=== PATIENT | male | born 1975 | race Caucasian/White ===

== ENCOUNTER 2021-03-30 08:09 | Outpatient (REF) | payer OTHER, SELFPAY ==
[2021-03-30 11:25] LABS: MANUAL DIFF FLAG NO
[2021-03-30 11:36] LABS: Basophils Absolute Auto 0.1 X10*3/uL (0.0-0.2); Basophils Percent Auto 0.6 % (0-2); Eosinophils Absolute Auto 0.1 X10*3/uL (0.0-0.4); Eosinophils Percent Auto 1.2 % (0-4); Hematocrit 50.8 % (42-52); Hemoglobin 17.3 g/dl (14.0-18.0); Imm Gran Abs Auto 0.03 X10*3/uL (0.00-0.03); Imm Gran Pct Auto 0.4 % (0.0-0.4); Lymphocytes Absolute Auto 2.2 X10*3/uL (1.2-4.9); Lymphocytes Percent Auto 27.7 % (20-40); Mean Corpuscular HGB Conc 34.1 g/dl (31.0-36.0); Mean Corpuscular Hemoglobin 31.3 pg (27.0-33.0); Mean Corpuscular Volume 91.9 fL (80-98); Mean Platelet Volume 11.3 fL (9.4-12.4); Monocytes Absolute Auto 0.8 X10*3/uL (0.1-1.2); Monocytes Percent Auto 10.7 % (2-11); Neutrophils Absolute Auto 4.6 X10*3/uL (2.0-8.3); Neutrophils Percent Auto 59.4 % (45-73); Platelet Count 217 X10*3/uL (160-400); Red Blood Count 5.53 X10*6/uL (4.60-5.80); Red Cell Distribution Width 13.4 % (11.0-16.0); White Blood Count 7.8 X10*3/uL (4.8-10.8)
[2021-03-30 12:06] LABS: Alanine Aminotransferase 67 U/L (0-40); Albumin Level 4.6 g/dL (3.5-5.0); Alkaline Phosphatase 78 U/L (39-117); Anion Gap 14 (12-20); Aspartate Amino Transferase 30 U/L (5-37); Bilirubin Total 1.4 mg/dL (0.0-1.0); Blood Urea Nitrogen 9 mg/dL (9-16); Calcium 9.7 mg/dL (8.4-10.2); Carbon Dioxide 26 mmol/L (22-29); Chloride 99 mmol/L (96-108); Cholesterol 227 mg/dL; Estimated Glomerular Filt Rate > 60; Glucose Fasting 227 mg/dL (60-99); HDL Cholesterol 47 mg/dL; LDL Cholesterol Calculated 131 mg/dl; Sodium 135 mmol/L (135-145); Total Protein 7.6 g/dL (6.5-8.0); Triglycerides 245 mg/dL
[2021-03-30 12:28] LABS: TSH reflex Free T4 4.18 uIU/mL (0.32-4.0)
[2021-03-30 13:05] LABS: Free T4 (Free Thyroxine) 0.86 ng/dL (0.71-1.85)
== END 2021-03-30 08:10 | disposition home or self-care (01) ==
LOC: HO.HMGCLDS 08:09
PROVIDERS: PCP Internal Medicine; Visit Provider Internal Medicine
DX: I10 Essential (primary) hypertension (principal); E66.01 Morbid (severe) obesity due to excess calories; Z76.89 Persons encountering health services in other specified circumstances
CPT/HCPCS: 36415; 80053; 80061; 84439; 84443; 85025

== ENCOUNTER 2021-09-05 09:15 | Outpatient (REF) | payer OTHER, SELFPAY ==
[2021-09-05 12:00] LABS: Estimated Average Glucose 226 mg/dL; Hemoglobin A1c % 9.5 %
[2021-09-05 12:12] LABS: Creatinine Urine 338.31 mg/dL; Microalbum/Creatinine Ratio Ur 11.8 ug/mg cr
[2021-09-05 12:19] LABS: TSH reflex Free T4 2.99 uIU/mL (0.32-4.0)
[2021-09-05 12:23] LABS: Alanine Aminotransferase 40 U/L (0-40); Albumin Level 4.4 g/dL (3.5-5.0); Alkaline Phosphatase 64 U/L (39-117); Anion Gap 13 (12-20); Aspartate Amino Transferase 22 U/L (5-37); Bilirubin Total 1.5 mg/dL (0.0-1.0); Blood Urea Nitrogen 15 mg/dL (9-16); Calcium 9.7 mg/dL (8.4-10.2); Carbon Dioxide 28 mmol/L (22-29); Chloride 97 mmol/L (96-108); Estimated Glomerular Filt Rate > 60; Glucose Random 290 mg/dL (60-115); Potassium 3.7 mmol/L (3.3-5.1); Sodium 134 mmol/L (135-145); Total Protein 7.4 g/dL (6.5-8.0)
== END 2021-09-05 09:16 | disposition home or self-care (01) ==
LOC: HO.HMGCLDS 09:15
PROVIDERS: PCP Internal Medicine; Visit Provider Internal Medicine
DX: E03.8 Other specified hypothyroidism (principal); E11.9 Type 2 diabetes mellitus without complications; E66.01 Morbid (severe) obesity due to excess calories; I10 Essential (primary) hypertension; R79.89 Other specified abnormal findings of blood chemistry; E03.9 Hypothyroidism, unspecified
CPT/HCPCS: 36415; 80053; 82043; 83036; 84443

== ENCOUNTER 2021-12-24 09:35 | Outpatient (REF) | payer OTHER, SELFPAY ==
[2021-12-24 11:34] LABS: Estimated Average Glucose 114 mg/dL; Hemoglobin A1c % 5.6 %
[2021-12-24 11:54] LABS: Alanine Aminotransferase 25 U/L (0-40); Albumin Level 4.7 g/dL (3.5-5.0); Alkaline Phosphatase 60 U/L (39-117); Anion Gap 11 (12-20); Aspartate Amino Transferase 18 U/L (5-37); Bilirubin Total 0.6 mg/dL (0.0-1.0); Blood Urea Nitrogen 21 mg/dL (9-16); Calcium 9.6 mg/dL (8.4-10.2); Carbon Dioxide 28 mmol/L (22-29); Chloride 103 mmol/L (96-108); Estimated Glomerular Filt Rate > 60; Glucose Random 96 mg/dL (60-115); Potassium 4.4 mmol/L (3.3-5.1); Sodium 138 mmol/L (135-145); Total Protein 7.6 g/dL (6.5-8.0)
== END 2021-12-24 09:36 | disposition home or self-care (01) ==
LOC: HO.HMGCLDS 09:35
PROVIDERS: Visit Provider Internal Medicine
DX: E11.65 Type 2 diabetes mellitus with hyperglycemia (principal); E66.01 Morbid (severe) obesity due to excess calories; I10 Essential (primary) hypertension; E03.8 Other specified hypothyroidism
CPT/HCPCS: 36415; 80053; 83036

== ENCOUNTER 2022-04-30 08:32 | Outpatient (REF) | payer OTHER, SELFPAY ==
[2022-04-30 11:54] LABS: Estimated Average Glucose 117 mg/dL; Hemoglobin A1c % 5.7 %
[2022-04-30 12:08] LABS: Microalbum/Creatinine Ratio Ur 12.5 ug/mg cr
[2022-04-30 12:14] LABS: Alanine Aminotransferase 31 U/L (0-40); Albumin Level 4.3 g/dL (3.5-5.0); Alkaline Phosphatase 69 U/L (39-117); Anion Gap 14 (12-20); Aspartate Amino Transferase 32 U/L (5-37); Bilirubin Total 0.9 mg/dL (0.0-1.0); Blood Urea Nitrogen 22 mg/dL (9-16); Calcium 9.4 mg/dL (8.4-10.2); Carbon Dioxide 27 mmol/L (22-29); Chloride 105 mmol/L (96-108); Cholesterol 204 mg/dL; Estimated Glomerular Filt Rate > 60; Glucose Fasting 128 mg/dL (60-99); HDL Cholesterol 45 mg/dL; LDL Cholesterol Calculated 120 mg/dl; Potassium 4.7 mmol/L (3.3-5.1); Sodium 141 mmol/L (135-145); TSH reflex Free T4 3.57 uIU/mL (0.32-4.0); Total Protein 7.1 g/dL (6.5-8.0); Triglycerides 198 mg/dL
== END 2022-04-30 08:33 | disposition home or self-care (01) ==
LOC: HO.HMGCLDS 08:32
PROVIDERS: PCP Internal Medicine; Visit Provider Internal Medicine
DX: E66.01 Morbid (severe) obesity due to excess calories (principal); E11.9 Type 2 diabetes mellitus without complications; E03.8 Other specified hypothyroidism; I10 Essential (primary) hypertension; Z91.09 Other allergy status, other than to drugs and biological substances
CPT/HCPCS: 36415; 80053; 80061; 82043; 83036; 84443

== ENCOUNTER 2022-09-12 11:06 | Outpatient (REF) | payer OTHER, SELFPAY ==
[2022-09-12 13:55] LABS: MANUAL DIFF FLAG NO
[2022-09-12 14:09] LABS: Basophils Absolute Auto 0.1 X10*3/uL (0.0-0.2); Basophils Percent Auto 0.6 % (0-2); Eosinophils Absolute Auto 0.2 X10*3/uL (0.0-0.4); Hematocrit 47.9 % (42.0-52.0); Hemoglobin 15.9 g/dl (14.0-18.0); Imm Gran Abs Auto 0.05 X10*3/uL (0.00-0.03); Imm Gran Pct Auto 0.6 % (0.0-0.4); Lymphocytes Absolute Auto 2.6 X10*3/uL (1.2-4.9); Lymphocytes Percent Auto 31.4 % (20-40); Mean Corpuscular HGB Conc 33.2 g/dl (31.0-36.0); Mean Corpuscular Hemoglobin 30.2 pg (27.0-33.0); Mean Corpuscular Volume 90.9 fL (80.0-98.0); Mean Platelet Volume 11.9 fL (9.4-12.4); Monocytes Absolute Auto 0.7 X10*3/uL (0.1-1.2); Monocytes Percent Auto 8.5 % (2-11); Neutrophils Absolute Auto 4.6 x10*3/uL (2.0-8.3); Neutrophils Percent Auto 56.9 % (45-73); Platelet Count 184 X10*3/uL (160-400); Red Blood Count 5.27 X10*6/uL (4.60-5.80); Red Cell Distribution Width 12.5 % (11.0-16.0); White Blood Count 8.2 X10*3/uL (4.8-10.8)
[2022-09-12 14:13] LABS: Estimated Average Glucose 160 mg/dL; Hemoglobin A1c % 7.2 %
[2022-09-12 14:44] LABS: Alanine Aminotransferase 35 U/L (0-40); Albumin Level 4.4 g/dL (3.5-5.0); Alkaline Phosphatase 62 U/L (39-117); Anion Gap 15 (12-20); Aspartate Amino Transferase 22 U/L (5-37); Bilirubin Total 1.1 mg/dL (0.0-1.0); Blood Urea Nitrogen 17 mg/dL (9-16); Calcium 9.7 mg/dL (8.4-10.2); Carbon Dioxide 27 mmol/L (22-29); Chloride 102 mmol/L (96-108); Estimated Glomerular Filt Rate > 60; Glucose Fasting 170 mg/dL (60-99); Potassium 4.5 mmol/L (3.3-5.1); Sodium 139 mmol/L (135-145)
[2022-09-12 14:45] LABS: TSH reflex Free T4 2.64 uIU/mL (0.32-4.0)
== END 2022-09-12 11:07 | disposition home or self-care (01) ==
LOC: HO.HMGCLDS 11:06
PROVIDERS: PCP Internal Medicine; Visit Provider Internal Medicine
DX: E03.8 Other specified hypothyroidism (principal); E66.01 Morbid (severe) obesity due to excess calories; I10 Essential (primary) hypertension; K58.0 Irritable bowel syndrome with diarrhea; Z91.09 Other allergy status, other than to drugs and biological substances; E11.9 Type 2 diabetes mellitus without complications
CPT/HCPCS: 36415; 80053; 83036; 84443; 85025

== ENCOUNTER 2022-12-19 08:01 | Outpatient (REF) | payer OTHER, SELFPAY | END 2022-12-19 08:02 | disposition home or self-care (01) | LOC: HO.HMGCLDS 08:01 | PROVIDERS: PCP Internal Medicine; Visit Provider Internal Medicine | DX: E11.9 Type 2 diabetes mellitus without complications (principal); I10 Essential (primary) hypertension | CPT/HCPCS: 36415; 80053; 83036 ==

== ENCOUNTER 2022-12-25 08:29 | Outpatient (AMB) | payer OTHER, SELFPAY ==
--- NOTE | 2022-12-25 08:30 | MHC.PC.OV ---
Vital Signs 12/25/22 08:34 Height 6 ft 1 in Weight 329 lb BMI 43.4 BP 124/78 Blood Pressure Location Lt brachial Position Sitting Pulse 57 Pulse Source Pulse Oximeter Pulse Oximetry (%) 97 Oxygen Delivery Method Room Air Intake Visit Reasons: PE per [place] Allergies Environmental Allergy (Intermediate, Uncoded 05/03/22 08:14) Watery eyes, runny nose Medication List - Last Reconciled 12/25/22 by Glenna More MD amlodipine 10 mg PO DAILY 90 days atenolol-chlorthalidone 50-25 mg 1 tab PO DAILY 90 days glipizide-metformin 5-500 mg 1 tab PO BID 90 days levothyroxine 25 mcg PO DAILY 90 days lisinopril 10 mg PO DAILY 90 days montelukast (Singulair) 10 mg PO DAILY omeprazole 20 mg PO DAILY Tobacco use date assessed: 12/25/22 Dental Screening Dental Screen Date: 12/25/22 Did you have a dental visit in the last 12 months?: No Did you have a dental problem in the last 6 months where you did not have access to dental care?: No Was dental information given to patient?: No HPI PE per [place] HPI Details Physical exam appointment Labs done this month reviewed Hemoglobin A1c is 6.1% Blood pressure controlled Medication list reviewed Follow-up 3 months Patient does not want to have colonoscopy as yet He has history of nasal surgery and after that 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 How often do you have a drink containing alcohol?: Never 3. How often do you have six or more drinks on one occasion?: Never Total Score: 0 Score Reviewed/Action Taken: Yes SOPHIA-7 AMB Questionnaire SOPHIA-7 Date SOPHIA - 7 assessed: 09/11/21 Source: Developed by Drs. Herbert Torrez, Kylah Clarke, Ayush Fallon and colleagues, with an educational jesús from [employer]. Review of Systems Const Denies chills, Denies fever(s) and Denies headache(s) Eyes Denies blurry vision ENT Denies headache(s), Denies nasal discharge, Denies nasal obstruction, Denies odynophagia and Denies sinus pain Card Denies chest pain at rest and Denies chest pain with activity Resp Denies cough and Denies hemoptysis GI Denies diarrhea, Denies odynophagia, Denies vomiting and Denies hematemesis Reports as per HPI Musc Denies abnormal gait Skin/Breast Reports as per HPI Neuro Denies Neuro-related abnormal movements, Denies Abnormal speech present, Denies abnormal gait, Denies headache(s) and Denies Sensory deficit (Neuro) Psych Denies mood swings and Denies paranoia Endo Reports as per HPI Aaron/Lymph Reports as per HPI Aller/Immun Reports as per HPI Physical exam (Primary Care) Vital Signs: Last Vital Signs Pulse 57 12/25/22 08:34 BP 124/78 12/25/22 08:34 Pulse Ox 97 12/25/22 08:34 Oxygen Delivery Method Room Air 12/25/22 08:34 BMI result Body Mass Index 43.4 Tobacco/Smoking Status: Tobacco use Status Tobacco use date assessed 12/25/22 12/25/22 08:37 Patient Tobacco Use Status Never used Tobacco 12/25/22 08:33 e-Cigarette/Vaping Use Never Used 12/25/22 08:33 Thrive Assessment: Date of Thrive Assessment Date Thrive assessed 09/11/21 12/25/22 08:33 Const General: cooperative, comfortable and no acute distress Orientation/consciousness: patient oriented x3 HENMT Head: Yes normocephalic and Yes atraumatic Eyes General: appearance normal, both eyes and all related structures Pupils: Equal, round and reactive pupils present EOM: EOMs intact bilaterally Neck Neck: Yes supple and No lymphadenopathy Thyroid: Thyroid normal Lymphatic: no lymphadenopathy noted Resp Effort & Inspection: normal respiratory effort and able to speak in complete sentences Auscultation: clear to auscultation bilaterally Cardio Heart sounds: S1 normal heart sound present and S2 normal heart sound present GI Palpation (GI): Soft to palpation and nontender Auscultation: normal bowel sounds General: Yes no CVA tenderness Back/Spine/Pelvis Back: no CVA tenderness Skin General skin exam: elasticity normal and turgor normal Neuro General: patient oriented x3 and gait normal Cranial nerves: Yes Equal, round and reactive pupils present Speech: No Abnormal speech present Sensory Exam: No Sensory deficit (Neuro) Extrem General: Yes normal exam except as noted and No edema Assessment and Plan Assessment & Plan (1) Encounter for general adult medical examination with abnormal findings: Code(s): Z00.01 - Encounter for general adult medical examination with abnormal findings (2) Diabetes type 2, controlled: Code(s): E11.9 - Type 2 diabetes mellitus without complications (3) Other specified hypothyroidism: Code(s): E03.8 - Other specified hypothyroidism (4) Hypertension, essential: Code(s): I10 - Essential (primary) hypertension (5) Acid reflux: Code(s): K21.9 - Gastro-esophageal reflux disease without esophagitis (6) LFT elevation: Code(s): R79.89 - Other specified abnormal findings of blood chemistry (7) Morbid obesity due to excess calories: Code(s): E66.01 - Morbid (severe) obesity due to excess calories (8) Traumatic anosmia: Code(s): R43.0 - Anosmia (9) Dizziness on standing: Code(s): R42 - Dizziness and giddiness Plan Physical exam appointment Labs done this month reviewed Hemoglobin A1c is 6.1% Blood pressure controlled Medication list reviewed Follow-up 3 months Patient does not want to have colonoscopy as yet He has history of nasal surgery and after that 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 After that surgery patient feel dizzy when his eyes closed and he is standing Follow-up 3 months Coding Level of Care Code Est Pt Prev Care 40-64y(94210) Diagnoses Encounter for general adult medical examination with abnormal findings Z00.01 Diabetes type 2, controlled E11.9 Other specified hypothyroidism E03.8 Hypertension, essential I10 Acid reflux K21.9 LFT elevation R79.89 Morbid obesity due to excess calories E66.01 Traumatic anosmia R43.0 Dizziness on standing R42
[2022-12-25 08:34] VITALS: BP 124/78; PULSE 57; O2SAT 97; BMI 43.4
== END 2022-12-25 10:00 | disposition home or self-care (01) ==
PROVIDERS: Visit Provider Internal Medicine
DX: Z00.01 Encounter for general adult medical examination with abnormal findings (principal); E66.01 Morbid (severe) obesity due to excess calories; E11.9 Type 2 diabetes mellitus without complications; Z68.43 Body mass index [BMI] 50.0-59.9, adult; E03.8 Other specified hypothyroidism; I10 Essential (primary) hypertension; K21.9 Gastro-esophageal reflux disease without esophagitis; R79.89 Other specified abnormal findings of blood chemistry; R43.0 Anosmia; R42 Dizziness and giddiness
CPT/HCPCS: 99396

== ENCOUNTER 2023-03-26 10:15 | Outpatient (REF) | payer OTHER, SELFPAY ==
[2023-03-26 13:09] LABS: MANUAL DIFF FLAG NO
[2023-03-26 13:28] LABS: Basophils Absolute Auto 0.1 X10*3/uL (0.0-0.2); Basophils Percent Auto 0.7 % (0-2); Eosinophils Absolute Auto 0.1 X10*3/uL (0.0-0.4); Eosinophils Percent Auto 1.7 % (0-4); Hematocrit 47.4 % (42.0-52.0); Hemoglobin 15.8 g/dl (14.0-18.0); Imm Gran Abs Auto 0.05 X10*3/uL (0.00-0.03); Imm Gran Pct Auto 0.6 % (0.0-0.4); Lymphocytes Absolute Auto 2.4 X10*3/uL (1.2-4.9); Lymphocytes Percent Auto 29.8 % (20-40); Mean Corpuscular HGB Conc 33.3 g/dl (31.0-36.0); Mean Corpuscular Hemoglobin 30.3 pg (27.0-33.0); Mean Corpuscular Volume 90.8 fL (80.0-98.0); Mean Platelet Volume 11.7 fL (9.4-12.4); Monocytes Absolute Auto 0.8 X10*3/uL (0.1-1.2); Monocytes Percent Auto 9.6 % (2-11); Neutrophils Absolute Auto 4.7 x10*3/uL (2.0-8.3); Neutrophils Percent Auto 57.6 % (45-73); Platelet Count 190 X10*3/uL (160-400); Red Blood Count 5.22 X10*6/uL (4.60-5.80); Red Cell Distribution Width 12.6 % (11.0-16.0); White Blood Count 8.2 X10*3/uL (4.8-10.8)
[2023-03-26 13:47] LABS: Alanine Aminotransferase 27 U/L (0-40); Albumin Level 4.5 g/dL (3.5-5.0); Alkaline Phosphatase 69 U/L (39-117); Anion Gap 16 (12-20); Aspartate Amino Transferase 17 U/L (5-37); Bilirubin Total 0.8 mg/dL (0.0-1.0); Blood Urea Nitrogen 14 mg/dL (9-16); Calcium 10.2 mg/dL (8.4-10.2); Carbon Dioxide 29 mmol/L (22-29); Chloride 100 mmol/L (96-108); Cholesterol 234 mg/dL (<200); Estimated Glomerular Filt Rate > 60; Glucose Random 138 mg/dL (60-115); HDL Cholesterol 51 mg/dL (>40); LDL Cholesterol Calculated 143 mg/dL (<100); Potassium 5.1 mmol/L (3.3-5.1); Sodium 140 mmol/L (135-145); Total Protein 7.6 g/dL (6.5-8.0); Triglycerides 203 mg/dL (<150)
== END 2023-03-26 10:16 | disposition home or self-care (01) ==
LOC: HO.HMGCLDS 10:15
PROVIDERS: PCP Internal Medicine; Visit Provider Internal Medicine
DX: I10 Essential (primary) hypertension (principal); E11.9 Type 2 diabetes mellitus without complications; E66.01 Morbid (severe) obesity due to excess calories
CPT/HCPCS: 36415; 80053; 80061; 82043; 82570; 83036; 84443; 85025

== ENCOUNTER 2023-04-01 10:24 | Outpatient (AMB) | payer OTHER, SELFPAY ==
[2023-04-01 10:29] VITALS: BP 126/78; PULSE 60; O2SAT 95; BMI 44.4
--- NOTE | 2023-04-01 10:29 | MHC.PC.OV ---
Vital Signs 04/01/23 10:29 Height 6 ft 1 in Weight 336 lb 6 oz BMI 44.4 BP 126/78 Blood Pressure Location Rt brachial Position Sitting Pulse 60 Pulse Source Pulse Oximeter Pulse Oximetry (%) 95 Oxygen Delivery Method Room Air Intake Visit Reasons: NOELLE, ENDY Allergies Environmental Allergy (Intermediate, Uncoded 05/03/22 08:14) Watery eyes, runny nose Medication List - Last Reconciled 04/01/23 by Glenna More MD amlodipine 10 mg PO DAILY 90 days atenolol-chlorthalidone 50-25 mg 1 tab PO DAILY 90 days glipizide-metformin 5-500 mg 1 tab PO BID 90 days levothyroxine 25 mcg PO DAILY 90 days lisinopril 10 mg PO DAILY 90 days montelukast (Singulair) 10 mg PO DAILY omeprazole 20 mg PO DAILY Tobacco use date assessed: 04/01/23 Dental Screening Dental Screen Date: 04/01/23 Did you have a dental visit in the last 12 months?: Yes Did you have a dental problem in the last 6 months where you did not have access to dental care?: No Was dental information given to patient?: Patient has dentist HPI EP, ENDY HPI Details Patient is 47-year-old male came in today for his regular appointment Labs done recently reviewed with the patient His lipids has gotten worse his LDL was in 120s range in summer and now it is above 140 Once again diet was discussed with the patient, he would like to repeat lipids again in 2 months, order placed GERD is stable with omeprazole 20 mg Diabetes mellitus: Patient is on glipizide metformin 5-500 mg his hemoglobin A1c is stable and is well controlled His blood pressure is controlled as well, he is on atenolol chlorthalidone 50-25 mg and is tolerating medications. He has IBS as well which is diarrhea predominant taking Imodium as needed Allergies are stable with long-acting antihistamine and montelukast BMI is elevated at patient is aware , tells me that he should be trying to lose weight but he is not however he knows what to eat and what not to eat Hypothyroidism: Continue levothyroxine 25 mcg TSH is within normal limit Follow-up in September, patient is not available to come in early he will be traveling Full set of labs are needed in September fasting [facility] Social History Housing: Apartment Patient Tobacco Use Status: Never used Tobacco e-Cigarette/Vaping Use: Never Used service: No Current occupational status: employed 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 1. Little interest or pleasure in doing things: not at all 2. Feeling down, depressed, or hopeless: not at all 3. Trouble falling or staying asleep, or sleeping too much: not at all 4. Feeling tired or having little energy: not at all 5. Poor appetite or overeating: not at all 6. Feeling bad about yourself - or that you are a failure or have let yourself or your family down: not at all 7. Trouble concentrating on things, such as reading the newspaper or watching television: not at all 8. Moving or speaking so slowly that other people could have noticed. Or the opposite - being so fidgety or restless that you have been moving around a lot more than usual: not at all 9. Thoughts that you would be better off or of hurting yourself in some way: not at all Total score: 0 Depression Screening Interpretation: Negative Depression Screening Done: Yes 37937 - PHQ-9 Billing: Yes Source: Developed by Drs. Herbert Torrez, Kylah Clarke, Ayush Fallon and colleagues, with an educational jesús from [employer]. Thrive Questionnaire Date Thrive assessed: 04/01/23 I am a: Patient What is your living situation today?: I have a steady place to live Within the past 12 months, did the food you bought not last and you didn't have the money to get more?: Never true Within the past 12 months, did you worry whether your food would run out before you got money to buy more?: Never true Do you have trouble paying for medicines?: No Do you have trouble getting transportation to medical appointments?: No Do you have trouble paying your heating and electricity bill?: No Do you have trouble taking care of your child, family member or friend?: No Do you have trouble with day-to-day activities such as bathing, preparing meals, shopping, managing finances, etc.?: No Are you currently unemployed and looking for a job?: No Are you interested in more education?: No AUDIT C Alcohol Use Questionnaire (AUDIT-C) 1. How often do you have a drink containing alcohol?: 2-4 times a month 2. How many drinks containing alcohol do you have on a typical day when you are drinking?: 1 or 2 3. How often do you have six or more drinks on one occasion?: Never Total Score: 2 Score Reviewed/Action Taken: Yes SOPHIA-7 AMB Questionnaire SOPHIA-7 Date SOPHIA - 7 assessed: 04/01/23 Feeling nervous, anxious, or on edge: 0 = Not at all Not being able to stop or control worryin = Not at all Worrying too much about different things: 0 = Not at all Trouble relaxin = Not at all Being so restless that it is hard to sit still: 0 = Not at all Becoming easily annoyed or irritable: 0 = Not at all Feeling afraid as if something awful might happen: 0 = Not at all Total SOPHIA-7 score (0-4 normal; 5-9 mild; 10-14 moderate; 15-21 severe): 0 Source: Developed by Drs. Herbert Torrez, Kylah Clarke, Ayush Fallon and colleagues, with an educational jesús from [employer]. SOPHIA-7 Assessment Billing SOPHIA-7 Assessment Tool: SOPHIA-7 Assessment 19144 Review of Systems Const Denies chills and Denies fever(s) ENT Denies epistaxis and Denies nasal discharge Card Denies chest pain Resp Denies chest congestion, Denies cough and Denies hemoptysis GI Denies diarrhea and Denies nausea Skin/Breast Denies rash Neuro Reports no additional complaints Psych Reports no additional complaints Endo Reports no additional complaints Physical exam (Primary Care) Vital Signs: Last Vital Signs Pulse 60 04/01/23 10:29 BP 126/78 04/01/23 10:29 Pulse Ox 95 04/01/23 10:29 Oxygen Delivery Method Room Air 04/01/23 10:29 BMI result Body Mass Index 44.4 Tobacco/Smoking Status: Tobacco use Status Tobacco use date assessed 04/01/23 04/01/23 10:31 Patient Tobacco Use Status Never used Tobacco 04/01/23 10:31 e-Cigarette/Vaping Use Never Used 04/01/23 10:31 PHQ-9: PHQ-9 Score PHQ-9: Total score 0 04/01/23 11:03 Depression Screening Interpretation: Negative Thrive Assessment: Date of Thrive Assessment Date Thrive assessed 04/01/23 04/01/23 11:03 Const General: cooperative, comfortable and no acute distress Orientation/consciousness: patient oriented x3 HENMT Head: Yes normocephalic Eyes General: appearance normal, both eyes and all related structures Neck Neck: Yes supple Resp Effort & Inspection: normal respiratory effort, no cough and no stridor Cardio Rhythm: regular rhythm Heart sounds: S1 normal heart sound present and S2 normal heart sound present Skin General skin exam: turgor normal Neuro General: patient oriented x3, tone normal and moves all extremities Extrem Right lower extremity: no edema Left lower extremity: no edema Assessment and Plan Assessment & Plan (1) Diabetes type 2, controlled: Code(s): E11.9 - Type 2 diabetes mellitus without complications Qualifiers: 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 use: without longwall shearer operator use Diabetes mellitus complication status: without complication Qualified Code(s): E11.9 - Type 2 diabetes mellitus without complications (2) Lipid disorder: Code(s): E78.9 - Disorder of lipoprotein metabolism, unspecified (3) Other specified hypothyroidism: Code(s): E03.8 - Other specified hypothyroidism (4) Hypertension, essential: Code(s): I10 - Essential (primary) hypertension (5) Acid reflux: Code(s): K21.9 - Gastro-esophageal reflux disease without esophagitis Qualifiers: Esophagitis presence: without esophagitis Qualified Code(s): K21.9 - Gastro-esophageal reflux disease without esophagitis (6) LFT elevation: Code(s): R79.89 - Other specified abnormal findings of blood chemistry (7) Morbid obesity due to excess calories: Code(s): E66.01 - Morbid (severe) obesity due to excess calories (8) Environmental allergies: Code(s): Z91.09 - Other allergy status, other than to drugs and biological substances Plan Patient is 47-year-old male came in today for his regular appointment Labs done recently reviewed with the patient His lipids has gotten worse his LDL was in 120s range in summer and now it is above 140 Once again diet was discussed with the patient, he would like to repeat lipids again in 2 months, order placed GERD is stable with omeprazole 20 mg Diabetes mellitus: Patient is on glipizide metformin 5-500 mg his hemoglobin A1c is stable and is well controlled His blood pressure is controlled as well, he is on atenolol chlorthalidone 50-25 mg and is tolerating medications. He has IBS as well which is diarrhea predominant taking Imodium as needed Allergies are stable with long-acting antihistamine and montelukast BMI is elevated at patient is aware , tells me that he should be trying to lose weight but he is not however he knows what to eat and what not to eat Hypothyroidism: Continue levothyroxine 25 mcg TSH is within normal limit Follow-up in September, patient is not available to come in early he will be traveling Full set of labs are needed in September fasting Orders: Orders Lipid Panel Today E78.9 - Disorder of lipoprotein metabolism, unspecified Liver Panel Today E78.9 - Disorder of lipoprotein metabolism, unspecified Comprehensive [place]. Panel Fast Today E03.8 - Other specified hypothyroidism, E11.9 - Type 2 diabetes mellitus without complications, E66.01 - Morbid (severe) obesity due to excess calories, E78.9 - Disorder of lipoprotein metabolism, unspecified, I10 - Essential (primary) hypertension, R79.89 - Other specified abnormal findings of blood chemistry Lipid Panel 4 Months E03.8 - Other specified hypothyroidism, E11.9 - Type 2 diabetes mellitus without complications, E66.01 - Morbid (severe) obesity due to excess calories, E78.9 - Disorder of lipoprotein metabolism, unspecified, I10 - Essential (primary) hypertension, R79.89 - Other specified abnormal findings of blood chemistry Hemoglobin A1c Today E03.8 - Other specified hypothyroidism, E11.9 - Type 2 diabetes mellitus without complications, E66.01 - Morbid (severe) obesity due to excess calories, E78.9 - Disorder of lipoprotein metabolism, unspecified, I10 - Essential (primary) hypertension, R79.89 - Other specified abnormal findings of blood chemistry Complete Blood Count Auto Diff Today E03.8 - Other specified hypothyroidism, E11.9 - Type 2 diabetes mellitus without complications, E66.01 - Morbid (severe) obesity due to excess calories, E78.9 - Disorder of lipoprotein metabolism, unspecified, I10 - Essential (primary) hypertension, R79.89 - Other specified abnormal findings of blood chemistry TSH reflex Free T4 4 Months E03.8 - Other specified hypothyroidism, E11.9 - Type 2 diabetes mellitus without complications, E66.01 - Morbid (severe) obesity due to excess calories, E78.9 - Disorder of lipoprotein metabolism, unspecified, I10 - Essential (primary) hypertension, R79.89 - Other specified abnormal findings of blood chemistry Microalbumin, Random (w Creat) Today E03.8 - Other specified hypothyroidism, E11.9 - Type 2 diabetes mellitus without complications, E66.01 - Morbid (severe) obesity due to excess calories, E78.9 - Disorder of lipoprotein metabolism, unspecified, I10 - Essential (primary) hypertension, R79.89 - Other specified abnormal findings of blood chemistry Coding Level of Care Code Est Pt Level 4 (65583) Diagnoses Controlled type 2 diabetes mellitus without complication, without long-term current use of insulin E11.9 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
== END 2023-04-01 11:21 | disposition home or self-care (01) ==
LOC: HO.HMGC 10:24
PROVIDERS: PCP Internal Medicine; Visit Provider Internal Medicine
DX: E11.9 Type 2 diabetes mellitus without complications (principal); E66.01 Morbid (severe) obesity due to excess calories; Z68.41 Body mass index [BMI] 40.0-44.9, adult; E78.9 Disorder of lipoprotein metabolism, unspecified; E03.8 Other specified hypothyroidism; I10 Essential (primary) hypertension; K21.9 Gastro-esophageal reflux disease without esophagitis; R79.89 Other specified abnormal findings of blood chemistry; Z91.09 Other allergy status, other than to drugs and biological substances
CPT/HCPCS: 99214

== ENCOUNTER 2023-10-14 09:37 | Outpatient (REF) | payer OTHER, SELFPAY ==
[2023-10-14 14:09] LABS: Cholesterol 207 mg/dL (<200); HDL Cholesterol 44 mg/dL (>40); LDL Cholesterol Calculated 123 mg/dL (<100); Triglycerides 204 mg/dL (<150)
[2023-10-14 14:11] LABS: TSH reflex Free T4 2.29 uIU/mL (0.32-4.0)
== END 2023-10-14 09:38 | disposition home or self-care (01) ==
LOC: HO.HMGCLDS 09:37
PROVIDERS: PCP Internal Medicine; Visit Provider Internal Medicine
DX: E78.5 Hyperlipidemia, unspecified (principal); I10 Essential (primary) hypertension; E03.8 Other specified hypothyroidism; R79.89 Other specified abnormal findings of blood chemistry; E11.9 Type 2 diabetes mellitus without complications; E66.01 Morbid (severe) obesity due to excess calories
CPT/HCPCS: 36415; 80061; 84443

== ENCOUNTER 2023-10-21 11:02 | Outpatient (AMB) | payer OTHER, SELFPAY ==
--- NOTE | 2023-10-21 11:02 | MHC.PC.OV ---
Vital Signs 10/21/23 11:06 Height 6 ft 1 in Weight 327 lb 6 oz BMI 43.2 BP 120/66 Blood Pressure Location Rt brachial Position Sitting Pulse 56 Pulse Source Pulse Oximeter Pulse Oximetry (%) 95 Oxygen Delivery Method Room Air Intake Visit Reasons: 6 month folllow-up Allergies Environmental Allergy (Intermediate, Uncoded 05/03/22 08:14) Watery eyes, runny nose Medication List - Last Reconciled 10/21/23 by Glenna More MD amlodipine 10 mg PO DAILY 90 days atenolol-chlorthalidone 50-25 mg 1 tab PO DAILY 90 days glipizide-metformin 5-500 mg 1 tab PO BID 90 days levothyroxine 25 mcg PO DAILY 90 days lisinopril 10 mg PO DAILY 90 days montelukast (Singulair) 10 mg PO DAILY omeprazole 20 mg PO DAILY Tobacco use date assessed: 10/21/23 Dental Screening Dental Screen Date: 10/21/23 Did you have a dental visit in the last 12 months?: Yes Did you have a dental problem in the last 6 months where you did not have access to dental care?: No Was dental information given to patient?: Patient has dentist HPI 6 month folllow-up HPI Details Patient is 48-year-old male came in today for his regular appointment I ordered not just cholesterol thyroid test but also metabolic profile and CBC but only part of the labs were done I have placed a new order for patient to be done end of December when he will return for physical examination Allergies are bothering him patient is already on Singulair, 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 1. Little interest or pleasure in doing things: not at all 2. Feeling down, depressed, or hopeless: not at all 3. Trouble falling or staying asleep, or sleeping too much: not at all 4. Feeling tired or having little energy: not at all 5. Poor appetite or overeating: not at all 6. Feeling bad about yourself - or that you are a failure or have let yourself or your family down: not at all 7. Trouble concentrating on things, such as reading the newspaper or watching television: not at all 8. Moving or speaking so slowly that other people could have noticed. Or the opposite - being so fidgety or restless that you have been moving around a lot more than usual: not at all 9. Thoughts that you would be better off or of hurting yourself in some way: not at all Total score: 0 Depression Screening Interpretation: Negative Depression Screening Done: Yes 53757 - PHQ-9 Billing: Yes Source: Developed by Drs. Herbert Torrez, Ayush Herzog and colleagues, with an educational jesús from [employer]. Thrive Questionnaire Date Thrive assessed: 04/01/23 AUDIT C Alcohol Use Questionnaire (AUDIT-C) 1. How often do you have a drink containing alcohol?: 2-4 times a month 2. How many drinks containing alcohol do you have on a typical day when you are drinking?: 1 or 2 3. How often do you have six or more drinks on one occasion?: Never Total Score: 2 Score Reviewed/Action Taken: Yes SOPHIA-7 AMB Questionnaire SOPHIA-7 Date SOPHIA - 7 assessed: 04/01/23 Source: Developed by Drs. Herbert Torrez, Ayush Herzog and colleagues, with an educational jesús from [employer]. Review of Systems Const Denies chills and Denies fever(s) ENT Denies epistaxis Card Denies chest pain Resp Denies chest congestion, Denies cough and Denies hemoptysis GI Denies diarrhea and Denies nausea Skin/Breast Denies rash Neuro Reports no additional complaints Psych Reports no additional complaints Endo Reports no additional complaints Physical exam (Primary Care) Vital Signs: Last Vital Signs Pulse 56 10/21/23 11:06 BP 120/66 10/21/23 11:06 Pulse Ox 95 10/21/23 11:06 Oxygen Delivery Method Room Air 10/21/23 11:06 BMI result Body Mass Index 43.2 Tobacco/Smoking Status: Tobacco use Status Tobacco use date assessed 10/21/23 10/21/23 11:09 Patient Tobacco Use Status Never used Tobacco 10/21/23 11:03 e-Cigarette/Vaping Use Never Used 10/21/23 11:03 Depression Screening Interpretation: Negative Thrive Assessment: Date of Thrive Assessment Date Thrive assessed 04/01/23 10/21/23 11:03 Const General: cooperative, comfortable and no acute distress Orientation/consciousness: patient oriented x3 HENMT Head: Yes normocephalic Eyes General: appearance normal, both eyes and all related structures Neck Neck: Yes supple Resp Effort & Inspection: normal respiratory effort, no cough and no stridor Cardio Rhythm: regular rhythm Heart sounds: S1 normal heart sound present and S2 normal heart sound present Skin General skin exam: turgor normal Neuro General: patient oriented x3, tone normal and moves all extremities Extrem Right lower extremity: no edema Left lower extremity: no edema Assessment and Plan Assessment & Plan (1) Diabetes type 2, controlled: Code(s): E11.9 - Type 2 diabetes mellitus without complications Qualifiers: Diabetes mellitus complication status: without complication Diabetes mellitus long-term insulin use: without oracle data warehouse developer use Qualified Code(s): E11.9 - Type 2 diabetes mellitus without complications (2) Other specified hypothyroidism: Code(s): E03.8 - Other specified hypothyroidism (3) Hypertension, essential: Code(s): I10 - Essential (primary) hypertension (4) Environmental allergies: Code(s): Z91.09 - Other allergy status, other than to drugs and biological substances (5) Acid reflux: Code(s): K21.9 - Gastro-esophageal reflux disease without esophagitis Qualifiers: Esophagitis presence: without esophagitis Qualified Code(s): K21.9 - Gastro-esophageal reflux disease without esophagitis (6) Lipid disorder: Code(s): E78.9 - Disorder of lipoprotein metabolism, unspecified (7) Morbid obesity due to excess calories: Code(s): E66.01 - Morbid (severe) obesity due to excess calories (8) LFT elevation: Code(s): R79.89 - Other specified abnormal findings of blood chemistry (9) Irritable bowel syndrome with diarrhea: Code(s): K58.0 - Irritable bowel syndrome with diarrhea Plan Patient is 48-year-old male came in today for his regular appointment I ordered not just cholesterol thyroid test but also metabolic profile and CBC but only part of the labs were done I have placed a new order for patient to be done end of December when he will return for physical examination Allergies are bothering him patient is already on Singulair, 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 He has IBS as well which is diarrhea predominant taking Imodium as needed BMI is elevated at patient is aware , tells me that he should be trying to lose weight but he is not however he knows what to eat and what not to eat Hypothyroidism: Continue levothyroxine 25 mcg TSH is within normal limit Physical exam end of December Orders: Orders Comprehensive [place]. Panel Fast Today E03.8 - Other specified hypothyroidism, E11.9 - Type 2 diabetes mellitus without complications, E66.01 - Morbid (severe) obesity due to excess calories, E78.9 - Disorder of lipoprotein metabolism, unspecified, I10 - Essential (primary) hypertension, K21.9 - Gastro-esophageal reflux disease without esophagitis, Z91.09 - Other allergy status, other than to drugs and biological substances Complete Blood Count Auto Diff Today E03.8 - Other specified hypothyroidism, E11.9 - Type 2 diabetes mellitus without complications, E66.01 - Morbid (severe) obesity due to excess calories, E78.9 - Disorder of lipoprotein metabolism, unspecified, I10 - Essential (primary) hypertension, K21.9 - Gastro-esophageal reflux disease without esophagitis, Z91.09 - Other allergy status, other than to drugs and biological substances Microalbumin, Random (w Creat) Today E03.8 - Other specified hypothyroidism, E11.9 - Type 2 diabetes mellitus without complications, E66.01 - Morbid (severe) obesity due to excess calories, E78.9 - Disorder of lipoprotein metabolism, unspecified, I10 - Essential (primary) hypertension, K21.9 - Gastro-esophageal reflux disease without esophagitis, Z91.09 - Other allergy status, other than to drugs and biological substances Lipid Panel Today E03.8 - Other specified hypothyroidism, E11.9 - Type 2 diabetes mellitus without complications, E66.01 - Morbid (severe) obesity due to excess calories, E78.9 - Disorder of lipoprotein metabolism, unspecified, I10 - Essential (primary) hypertension, K21.9 - Gastro-esophageal reflux disease without esophagitis, Z91.09 - Other allergy status, other than to drugs and biological substances Hemoglobin A1c Today E11.9 - Type 2 diabetes mellitus without complications Coding Level of Care Code Est Pt Level 4 (73420) Diagnoses Controlled type 2 diabetes mellitus without complication, without long-term current use of insulin E11.9 Diabetes mellitus complication status: without complication Diabetes mellitus long-term insulin use: without oracle data warehouse developer use Other specified hypothyroidism E03.8 Hypertension, essential I10 Environmental allergies Z91.09 Gastroesophageal reflux disease without esophagitis K21.9 Esophagitis presence: without esophagitis Lipid disorder E78.9 Morbid obesity due to excess calories E66.01 LFT elevation R79.89 Irritable bowel syndrome with diarrhea K58.0
[2023-10-21 11:06] VITALS: BP 120/66; PULSE 56; O2SAT 95; BMI 43.2
== END 2023-10-21 11:47 | disposition home or self-care (01) ==
PROVIDERS: PCP Internal Medicine; Visit Provider Internal Medicine
DX: E11.9 Type 2 diabetes mellitus without complications (principal); E66.01 Morbid (severe) obesity due to excess calories; Z68.41 Body mass index [BMI] 40.0-44.9, adult; E03.8 Other specified hypothyroidism; I10 Essential (primary) hypertension; Z91.09 Other allergy status, other than to drugs and biological substances; K21.9 Gastro-esophageal reflux disease without esophagitis; E78.9 Disorder of lipoprotein metabolism, unspecified; R79.89 Other specified abnormal findings of blood chemistry; K58.0 Irritable bowel syndrome with diarrhea
CPT/HCPCS: 99214

== ENCOUNTER 2023-11-12 11:38 | Outpatient (AMB) | payer OTHER, SELFPAY ==
[2023-11-12 11:43] VITALS: BP 118/70; PULSE 47; O2SAT 97; BMI 42.4
--- NOTE | 2023-11-12 11:43 | MHC.PC.OV ---
Vital Signs 11/12/23 11:43 Height 6 ft 1 in Weight 321 lb 4 oz BMI 42.4 BP 118/70 Blood Pressure Location Lt brachial Position Sitting Pulse 47 L Pulse Source Pulse Oximeter Pulse Oximetry (%) 97 Oxygen Delivery Method Room Air Intake Visit Reasons: cist under arm Allergies Environmental Allergy (Intermediate, Uncoded 05/03/22 08:14) Watery eyes, runny nose Medication List - Last Reconciled 11/12/23 by Glenna More MD amlodipine 10 mg PO DAILY 90 days atenolol-chlorthalidone 50-25 mg 1 tab PO DAILY 90 days glipizide-metformin 5-500 mg 1 tab PO BID 90 days levothyroxine 25 mcg PO DAILY 90 days lisinopril 10 mg PO DAILY 90 days montelukast (Singulair) 10 mg PO DAILY omeprazole 20 mg PO DAILY Tobacco use date assessed: 11/12/23 Dental Screening Dental Screen Date: 11/12/23 Did you have a dental visit in the last 12 months?: Yes Did you have a dental problem in the last 6 months where you did not have access to dental care?: No Was dental information given to patient?: Patient has dentist HPI cist under arm HPI Details Patient is a 48-year-old came in today talk about few medical issues Patient has been feeling very tired and fatigued for the past few days with runny nose and itchy eyes He does have allergies and is taking montelukast which is not controlling his allergies I have sent Flonase nasal spray and cetirizine as well patient is to start taking both medications as well as montelukast I have also ordered some labs with the patient He has found a painful lump in his right axillary area He tells me that his father had a cancer and he also found lumps around his body that he would node On examination it looks like a impacted cyst or cellulitis as his skin is erythematous at the site of lump and is painful to palpation Right axilla. I am treating with antibiotic we will re-evaluate after he is done with antibiotic His hemoglobin A1c came back at 7.9 It was 6.6 March of last year Patient says that he is taking his medication regularly He is on glipizide metformin 5 500 mg b.i.d. He has a follow-up appointment in December I have sent glucometer and supplies with the patient He is to start monitoring his fasting sugar. 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 How often do you have a drink containing alcohol?: 2-4 times a month 2. How many drinks containing alcohol do you have on a typical day when you are drinking?: 1 or 2 3. How often do you have six or more drinks on one occasion?: Never Total Score: 2 Score Reviewed/Action Taken: Yes SOPHIA-7 AMB Questionnaire SOPHIA-7 Date SOPHIA - 7 assessed: 04/01/23 Source: Developed by Drs. Herbert Torrez, Kylah Clarke, Ayush Fallon and colleagues, with an educational jesús from [employer]. Review of Systems Const Denies chills and Denies fever(s) ENT Denies epistaxis and Denies nasal discharge Card Denies chest pain Resp Denies chest congestion, Denies cough and Denies hemoptysis GI Denies diarrhea and Denies nausea Skin/Breast Denies rash Neuro Reports no additional complaints Psych Reports no additional complaints Endo Reports no additional complaints Physical exam (Primary Care) Vital Signs: Last Vital Signs Pulse 47 L 11/12/23 11:43 BP 118/70 11/12/23 11:43 Pulse Ox 97 11/12/23 11:43 Oxygen Delivery Method Room Air 11/12/23 11:43 BMI result Body Mass Index 42.4 Tobacco/Smoking Status: Tobacco use Status Tobacco use date assessed 11/12/23 11/12/23 11:47 Patient Tobacco Use Status Never used Tobacco 11/12/23 11:47 e-Cigarette/Vaping Use Never Used 11/12/23 11:47 Thrive Assessment: Date of Thrive Assessment Date Thrive assessed 04/01/23 11/12/23 11:47 Const General: cooperative, comfortable and no acute distress Orientation/consciousness: patient oriented x3 HENMT Head: Yes normocephalic Eyes General: appearance normal, both eyes and all related structures Neck Neck: Yes supple Chest Chest/axillae images: 1. Painful lump right axilla with superficial skin erythema Resp Effort & Inspection: normal respiratory effort, no cough and no stridor Cardio Rhythm: regular rhythm Heart sounds: S1 normal heart sound present and S2 normal heart sound present Skin General skin exam: turgor normal Neuro General: patient oriented x3, tone normal and moves all extremities Extrem Right lower extremity: no edema Left lower extremity: no edema Results AMB Hemoglobin A1c AMB Hemoglobin A1c 7.9 % Last Edit by Rl De La Vega MA on 11/12/23 12:02 Results Reviewed Results Reviewed: Laboratory Last Values Hgb A1c (Clinic) 7.9 % (4.0-6.0) H 11/12/23 12:02 Assessment and Plan Assessment & Plan (1) Cellulitis: Code(s): L03.90 - Cellulitis, unspecified Qualifiers: Site of cellulitis of extremity: axilla Laterality: right Site of cellulitis: extremity Qualified Code(s): L03.111 - Cellulitis of right axilla (2) Tiredness: Code(s): R53.83 - Other fatigue (3) Fatigue: Code(s): R53.83 - Other fatigue Qualifiers: Fatigue type: unspecified Qualified Code(s): R53.83 - Other fatigue (4) Runny nose: Code(s): R09.89 - Other specified symptoms and signs involving the circulatory and respiratory systems (5) Itchy eyes: Code(s): H57.9 - Unspecified disorder of eye and adnexa Plan Patient is a 48-year-old came in today talk about few medical issues Patient has been feeling very tired and fatigued for the past few days with runny nose and itchy eyes He does have allergies and is taking montelukast which is not controlling his allergies I have sent Flonase nasal spray and cetirizine as well patient is to start taking both medications as well as montelukast I have also ordered some labs with the patient He has found a painful lump in his right axillary area He tells me that his father had a cancer and he also found lumps around his body that he would node On examination it looks like a impacted cyst or cellulitis as his skin is erythematous at the site of lump and is painful to palpation Right axilla. I am treating with antibiotic we will re-evaluate after he is done with antibiotic His hemoglobin A1c came back at 7.9 It was 6.6 March of last year Patient says that he is taking his medication regularly He is on glipizide metformin 5 500 mg b.i.d. He has a follow-up appointment in December meanwhile I have sent glucometer and supplies with the patient He is to start monitoring his fasting sugar. And keep a log Orders: Orders Vitamin D 25-OH (D2 and D3) Today H57.9 - Unspecified disorder of eye and adnexa, L03.90 - Cellulitis, unspecified, R09.89 - Other specified symptoms and signs involving the circulatory and respiratory systems, R53.83 - Other fatigue Magnesium Today H57.9 - Unspecified disorder of eye and adnexa, L03.90 - Cellulitis, unspecified, R09.89 - Other specified symptoms and signs involving the circulatory and respiratory systems, R53.83 - Other fatigue Complete Blood Count Auto Diff Today H57.9 - Unspecified disorder of eye and adnexa, L03.90 - Cellulitis, unspecified, R09.89 - Other specified symptoms and signs involving the circulatory and respiratory systems, R53.83 - Other fatigue Comprehensive Met. Panel Today H57.9 - Unspecified disorder of eye and adnexa, L03.90 - Cellulitis, unspecified, R09.89 - Other specified symptoms and signs involving the circulatory and respiratory systems, R53.83 - Other fatigue TSH reflex Free T4 Today H57.9 - Unspecified disorder of eye and adnexa, L03.90 - Cellulitis, unspecified, R09.89 - Other specified symptoms and signs involving the circulatory and respiratory systems, R53.83 - Other fatigue Vitamin B12 Today H57.9 - Unspecified disorder of eye and adnexa, L03.90 - Cellulitis, unspecified, R09.89 - Other specified symptoms and signs involving the circulatory and respiratory systems, R53.83 - Other fatigue Ferritin Today H57.9 - Unspecified disorder of eye and adnexa, L03.90 - Cellulitis, unspecified, R09.89 - Other specified symptoms and signs involving the circulatory and respiratory systems, R53.83 - Other fatigue Folate Today H57.9 - Unspecified disorder of eye and adnexa, L03.90 - Cellulitis, unspecified, R09.89 - Other specified symptoms and signs involving the circulatory and respiratory systems, R53.83 - Other fatigue Medications: New cetirizine (Zyrtec) 10 mg PO DAILY 90 days 90 tabs 1RF fluticasone furoate 27.5 mcg/actuation (Flonase Sensimist) into each nostril 1 spray intranasal DAILY 9.1 mL 0RF amoxicillin-pot clavulanate 875-125 mg 1 tab PO BID 10 days 20 tabs 0RF Coding Level of Care Code Est Pt Level 4 (89484) Diagnoses Cellulitis of right axilla L03.111 Site of cellulitis of extremity: axilla Laterality: right Site of cellulitis: extremity Tiredness R53.83 Fatigue, unspecified type R53.83 Fatigue type: unspecified Runny nose R09.89 Itchy eyes H57.9
== END 2023-11-12 14:00 | disposition home or self-care (01) ==
PROVIDERS: PCP Internal Medicine; Visit Provider Internal Medicine
DX: L03.111 Cellulitis of right axilla (principal); R53.83 Other fatigue; R09.89 Other specified symptoms and signs involving the circulatory and respiratory systems; H57.9 Unspecified disorder of eye and adnexa
CPT/HCPCS: 99214

== ENCOUNTER 2023-11-13 09:47 | Outpatient (REF) | payer OTHER, SELFPAY ==
[2023-11-13 13:34] LABS: MANUAL DIFF FLAG NO
[2023-11-13 13:42] LABS: Basophils Absolute Auto 0.1 X10*3/uL (0.0-0.2); Basophils Percent Auto 0.8 % (0-2); Eosinophils Absolute Auto 0.2 X10*3/uL (0.0-0.4); Eosinophils Percent Auto 2.1 % (0-4); Hematocrit 47.1 % (42.0-52.0); Hemoglobin 15.7 g/dl (14.0-18.0); Imm Gran Abs Auto 0.03 X10*3/uL (0.00-0.03); Imm Gran Pct Auto 0.4 % (0.0-0.4); Lymphocytes Absolute Auto 2.7 X10*3/uL (1.2-4.9); Lymphocytes Percent Auto 32.1 % (20-40); Mean Corpuscular HGB Conc 33.3 g/dl (31.0-36.0); Mean Corpuscular Hemoglobin 29.6 pg (27.0-33.0); Mean Corpuscular Volume 88.9 fL (80.0-98.0); Mean Platelet Volume 12.1 fL (9.4-12.4); Monocytes Absolute Auto 0.8 X10*3/uL (0.1-1.2); Monocytes Percent Auto 9.4 % (2-11); Neutrophils Absolute Auto 4.6 x10*3/uL (2.0-8.3); Neutrophils Percent Auto 55.2 % (45-73); Platelet Count 212 X10*3/uL (160-400); Red Cell Distribution Width 12.6 % (11.0-16.0); White Blood Count 8.3 X10*3/uL (4.8-10.8)
[2023-11-13 14:14] LABS: Estimated Average Glucose 177 mg/dL; Hemoglobin A1c % 7.8 % (<6.0)
[2023-11-13 14:15] LABS: Alanine Aminotransferase 36 U/L (0-40); Albumin Level 4.5 g/dL (3.5-5.0); Alkaline Phosphatase 76 U/L (39-117); Anion Gap 14 (12-20); Aspartate Amino Transferase 18 U/L (5-37); Bilirubin Total 0.5 mg/dL (0.0-1.0); Blood Urea Nitrogen 17 mg/dL (9-16); Carbon Dioxide 26 mmol/L (22-29); Chloride 102 mmol/L (96-108); Cholesterol 186 mg/dL (<200); Estimated Glomerular Filt Rate > 60; Glucose Fasting 180 mg/dL (60-99); Glucose Random 180 mg/dL (60-115); HDL Cholesterol 41 mg/dL (>40); LDL Cholesterol Calculated 117 mg/dL (<100); Magnesium 1.5 mg/dL (1.6-2.6); Potassium 4.1 mmol/L (3.3-5.1); Sodium 138 mmol/L (135-145); Total Protein 7.5 g/dL (6.5-8.0); Triglycerides 143 mg/dL (<150)
[2023-11-13 14:32] LABS: Ferritin 789 ng/mL (20-250)
[2023-11-13 14:48] LABS: Folate 7.5 ng/mL (> or = 4.0); Vitamin B12 402 pg/mL (200-900)
[2023-11-18 13:33] LABS: Vitamin D 25-OH, D2 <4 ng/mL; Vitamin D 25-OH, D3 21 ng/mL; Vitamin D 25-OH, Total 21 ng/mL (30-100)
== END 2023-11-13 09:48 | disposition home or self-care (01) ==
LOC: HO.HMGCLDS 09:47
PROVIDERS: PCP Internal Medicine; Visit Provider Internal Medicine
DX: E11.9 Type 2 diabetes mellitus without complications (principal); E03.8 Other specified hypothyroidism; I10 Essential (primary) hypertension; Z91.09 Other allergy status, other than to drugs and biological substances; K21.9 Gastro-esophageal reflux disease without esophagitis; E78.9 Disorder of lipoprotein metabolism, unspecified; E66.01 Morbid (severe) obesity due to excess calories; R53.83 Other fatigue; L03.90 Cellulitis, unspecified; R09.89 Other specified symptoms and signs involving the circulatory and respiratory systems; H57.9 Unspecified disorder of eye and adnexa
CPT/HCPCS: 36415; 80053; 80061; 82306; 82607; 82728; 82746; 83036; 83735; 84443; 85025

== ENCOUNTER 2023-12-17 10:36 | Outpatient (REF) | payer OTHER, SELFPAY ==
[2023-12-17 14:05] LABS: Microalbum/Creatinine Ratio Ur 22.4 ug/mg cr (<30)
[2023-12-17 14:17] LABS: Ferritin 1320 ng/mL (20-250)
== END 2023-12-17 10:37 | disposition home or self-care (01) ==
LOC: HO.HMGCLDS 10:36
PROVIDERS: PCP Internal Medicine; Visit Provider Internal Medicine
DX: E11.9 Type 2 diabetes mellitus without complications (principal); E03.8 Other specified hypothyroidism; I10 Essential (primary) hypertension; K21.9 Gastro-esophageal reflux disease without esophagitis; E78.9 Disorder of lipoprotein metabolism, unspecified; E66.01 Morbid (severe) obesity due to excess calories; R79.89 Other specified abnormal findings of blood chemistry; Z91.09 Other allergy status, other than to drugs and biological substances
CPT/HCPCS: 36415; 81256; 82043; 82570; 82728

== ENCOUNTER 2023-12-23 12:12 | Outpatient (AMB) | payer OTHER, SELFPAY ==
[2023-12-23 12:15] VITALS: BP 126/80; PULSE 48; O2SAT 97; BMI 41.7
--- NOTE | 2023-12-23 12:15 | MHC.PC.OV ---
Vital Signs 12/23/23 12:15 Height 6 ft 1 in Weight 316 lb 2 oz BMI 41.7 BP 126/80 Blood Pressure Location Rt brachial Position Sitting Pulse 48 L Pulse Source Pulse Oximeter Pulse Oximetry (%) 97 Oxygen Delivery Method Room Air Intake Visit Reasons: Follow Up Allergies Environmental Allergy (Intermediate, Uncoded 05/03/22 08:14) Watery eyes, runny nose Medication List - Last Reconciled 12/23/23 by Glenna More MD amlodipine 10 mg PO DAILY 90 days atenolol-chlorthalidone 50-25 mg 1 tab PO DAILY 90 days blood sugar diagnostic (FreeStyle Lite Strips) As directed blood sugar twice daily blood-glucose meter (FreeStyle Lite Meter kit) Test blood sugar twice per day cetirizine (Zyrtec) 10 mg PO DAILY 90 days fluticasone furoate 27.5 mcg/actuation (Flonase Sensimist) 1 spray intranasal DAILY glipizide-metformin 5-500 mg 1 tab PO BID 90 days lancets (FreeStyle Lancets) As directed take blood sugar once daily levothyroxine 25 mcg PO DAILY 90 days lisinopril 10 mg PO DAILY 90 days magnesium gluconate 27 mg PO DAILY 30 days montelukast (Singulair) 10 mg PO DAILY omeprazole 20 mg PO DAILY Tobacco use date assessed: 12/23/23 Dental Screening Dental Screen Date: 12/23/23 Did you have a dental visit in the last 12 months?: Yes Did you have a dental problem in the last 6 months where you did not have access to dental care?: No Was dental information given to patient?: Patient has dentist HPI Follow Up HPI Details Patient is 48-year-old male came in today to go over his labs Patient is ferritin level came back high it was initially 789 in October and then we repeated it again and it came at 1320 I have placed a referral for him to be evaluated by Hematology And hemochromatosis gene test is ordered Patient recently had COVID infection He is recovering from it Still have lot of nasal mucus which is dripping in the back of the throat I have told her to take [id number] decongestant as needed until symptoms resolves Lab reports printed and handed to patient He says that his mother is retired physician she would like to go over those. 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 How often do you have a drink containing alcohol?: 2-4 times a month 2. How many drinks containing alcohol do you have on a typical day when you are drinking?: 1 or 2 3. How often do you have six or more drinks on one occasion?: Never Total Score: 2 Score Reviewed/Action Taken: Yes SOPHIA-7 AMB Questionnaire SOPHIA-7 Date SOPHIA - 7 assessed: 04/01/23 Source: Developed by Drs. Herbert Torrez, Kylah Clarke, Ayush Fallon and colleagues, with an educational jesús from [employer]. Review of Systems Const Denies chills and Denies fever(s) ENT Denies epistaxis Card Denies chest pain Resp Denies chest congestion, Denies cough and Denies hemoptysis GI Denies diarrhea and Denies nausea Skin/Breast Denies rash Neuro Reports no additional complaints Psych Reports no additional complaints Endo Reports no additional complaints Physical exam (Primary Care) Vital Signs: Last Vital Signs Pulse 48 L 12/23/23 12:15 BP 126/80 12/23/23 12:15 Pulse Ox 97 12/23/23 12:15 Oxygen Delivery Method Room Air 12/23/23 12:15 BMI result Body Mass Index 41.7 Tobacco/Smoking Status: Tobacco use Status Tobacco use date assessed 12/23/23 12/23/23 12:18 Patient Tobacco Use Status Never used Tobacco 12/23/23 12:18 e-Cigarette/Vaping Use Never Used 12/23/23 12:18 Thrive Assessment: Date of Thrive Assessment Date Thrive assessed 04/01/23 12/23/23 12:18 Const General: cooperative, comfortable and no acute distress Orientation/consciousness: patient oriented x3 HENMT Head: Yes normocephalic Eyes General: appearance normal, both eyes and all related structures Neck Neck: Yes supple Resp Effort & Inspection: normal respiratory effort, no cough and no stridor Cardio Rhythm: regular rhythm Heart sounds: S1 normal heart sound present and S2 normal heart sound present Skin General skin exam: turgor normal Neuro General: patient oriented x3, tone normal and moves all extremities Extrem Right lower extremity: no edema Left lower extremity: no edema Assessment and Plan Assessment & Plan (1) Elevated ferritin: Code(s): R79.89 - Other specified abnormal findings of blood chemistry (2) Postnasal drip: Code(s): R09.82 - Postnasal drip (3) Elevated AFP: Code(s): R77.2 - Abnormality of alphafetoprotein Plan Patient is 48-year-old male came in today to go over his labs Patient is ferritin level came back high it was initially 789 in October and then we repeated it again and it came at 1320 I have placed a referral for him to be evaluated by Hematology And hemochromatosis gene test is ordered Patient recently had COVID infection He is recovering from it Still have lot of nasal mucus which is dripping in the back of the throat I have told her to take [id number] decongestant as needed until symptoms resolves Lab reports printed and handed to patient He says that his mother is retired physician she would like to go over those. Coding Level of Care Code Est Pt Level 3 (66274) Diagnoses Elevated ferritin R79.89 Postnasal drip R09.82 Elevated AFP R77.2
== END 2023-12-23 12:55 | disposition home or self-care (01) ==
PROVIDERS: PCP Internal Medicine; Visit Provider Internal Medicine
DX: R79.89 Other specified abnormal findings of blood chemistry (principal); R09.82 Postnasal drip; R77.2 Abnormality of alphafetoprotein
CPT/HCPCS: 99213

== ENCOUNTER 2024-01-06 08:43 | Outpatient (AMB) | payer OTHER, SELFPAY ==
--- NOTE | 2024-01-06 08:51 | A.OFFPC_ITS ---
Vital Signs 01/06/24 08:52 Height 6 ft 1 in Weight 318 lb 4 oz BMI 42.0 BP 126/78 Blood Pressure Location Rt brachial Position Sitting Pulse 57 Pulse Source Pulse Oximeter Pulse Oximetry (%) 97 Oxygen Delivery Method Room Air Intake Visit Reasons: Annual PE - see comments Allergies Environmental Allergy (Intermediate, Uncoded 05/03/22 08:14) Watery eyes, runny nose Medication List - Last Reconciled 01/06/24 by Glenna More MD amlodipine 10 mg PO DAILY 90 days atenolol-chlorthalidone 50-25 mg 1 tab PO DAILY 90 days blood sugar diagnostic (FreeStyle Lite Strips) As directed blood sugar twice daily blood-glucose meter (FreeStyle Lite Meter kit) Test blood sugar twice per day cetirizine (Zyrtec) 10 mg PO DAILY 90 days fluticasone furoate 27.5 mcg/actuation (Flonase Sensimist) 1 spray intranasal DAILY glipizide-metformin 5-500 mg 1 tab PO BID 90 days lancets (FreeStyle Lancets) As directed take blood sugar once daily levothyroxine 25 mcg PO DAILY 90 days lisinopril 10 mg PO DAILY 90 days magnesium gluconate 27 mg PO DAILY 30 days montelukast (Singulair) 10 mg PO DAILY omeprazole 20 mg PO DAILY Tobacco use date assessed: 01/06/24 Dental Screening Dental Screen Date: 01/06/24 Did you have a dental visit in the last 12 months?: Yes Did you have a dental problem in the last 6 months where you did not have access to dental care?: No Was dental information given to patient?: Patient has dentist HPI Annual PE - see comments HPI Details Patient is a 48-year-old gentleman came in today for physical exam Last set of labs done in November 12 reviewed again He is taking all his medication and are tolerating them Allergies are stable since he has started taking Singulair He has appointment with the phosphatic fertilizer supervisor end of this month for elevated ferritin Hemochromatosis test is still pending Patient is still not interested in colonoscopy. Not consistent with Flonase, patient says that he feels he does not need it bhanu ry day Continue with magnesium supplement GERD is stable with omeprazole BMI is elevated need to lose weight, patient says that he is aware of that Vital signs are stable Patient says that he feels good Lab order placed to be done in February. Patient has appointment for follow-up in April. 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 1. Little interest or pleasure in doing things: not at all 2. Feeling down, depressed, or hopeless: not at all 3. Trouble falling or staying asleep, or sleeping too much: not at all 4. Feeling tired or having little energy: not at all 5. Poor appetite or overeating: not at all 6. Feeling bad about yourself - or that you are a failure or have let yourself or your family down: not at all 7. Trouble concentrating on things, such as reading the newspaper or watching television: not at all 8. Moving or speaking so slowly that other people could have noticed. Or the opposite - being so fidgety or restless that you have been moving around a lot more than usual: not at all 9. Thoughts that you would be better off or of hurting yourself in some way: not at all Total score: 0 Depression Screening Interpretation: Negative Depression Screening Done: Yes 35780 - PHQ-9 Billing: Yes Source: Developed by Drs. Herbert Torrez, Kylah Clarke, Ayush Fallon and colleagues, with an educational jesús from [employer]. Thrive Questionnaire Date Thrive assessed: 01/06/24 I am a: Patient What is your living situation today?: I have a steady place to live Within the past 12 months, did the food you bought not last and you didn't have the money to get more?: Never true Within the past 12 months, did you worry whether your food would run out before you got money to buy more?: Never true Do you have trouble paying for medicines?: No Do you have trouble getting transportation to medical appointments?: No Do you have trouble paying your heating and electricity bill?: No Do you have trouble taking care of your child, family member or friend?: No Do you have trouble with day-to-day activities such as bathing, preparing meals, shopping, managing finances, etc.?: No Are you currently unemployed and looking for a job?: No Are you interested in more education?: No Please select the resources that you would like help with: Housing/Retirement Currently or been in a relationship where the following occur: No concerns reported THRIVE Score: 0 AUDIT C Alcohol Use Questionnaire (AUDIT-C) 1. How often do you have a drink containing alcohol?: 2-3 times a week 2. How many drinks containing alcohol do you have on a typical day when you are drinking?: 1 or 2 3. How often do you have six or more drinks on one occasion?: Monthly Total Score: 5 Score Reviewed/Action Taken: Yes SOPHIA-7 AMB Questionnaire SOPHIA-7 Date SOPHIA - 7 assessed: 01/06/24 Feeling nervous, anxious, or on edge: 0 = Not at all Not being able to stop or control worryin = Not at all Worrying too much about different things: 0 = Not at all Trouble relaxin = Not at all Being so restless that it is hard to sit still: 0 = Not at all Becoming easily annoyed or irritable: 0 = Not at all Feeling afraid as if something awful might happen: 0 = Not at all Total SOPHIA-7 score (0-4 normal; 5-9 mild; 10-14 moderate; 15-21 severe): 0 Source: Developed by Drs. Herbert Torrez, Kylah Clarke, Ayush Fallon and colleagues, with an educational jesús from [employer]. SOPHIA-7 Assessment Billing SOPHIA-7 Assessment Tool: SOPHIA-7 Assessment 68315 Review of Systems Const Denies chills, Denies fever(s) and Denies headache(s) Eyes Denies blurry vision ENT Denies headache(s), Denies nasal discharge, Denies nasal obstruction, Denies odynophagia and Denies sinus pain Card Denies chest pain at rest and Denies chest pain with activity Resp Denies cough and Denies hemoptysis GI Denies diarrhea, Denies odynophagia, Denies vomiting and Denies hematemesis Reports as per HPI Musc Denies abnormal gait Skin/Breast Reports as per HPI Neuro Denies Neuro-related abnormal movements, Denies Abnormal speech present, Denies abnormal gait, Denies headache(s) and Denies Sensory deficit (Neuro) Psych Denies mood swings and Denies paranoia Endo Reports as per HPI Aaron/Lymph Reports as per HPI Aller/Immun Reports as per HPI Physical exam (Primary Care) Vital Signs: Last Vital Signs Pulse 57 01/06/24 08:52 BP 126/78 01/06/24 08:52 Pulse Ox 97 01/06/24 08:52 Oxygen Delivery Method Room Air 01/06/24 08:52 BMI result Body Mass Index 42.0 Tobacco/Smoking Status: Tobacco use Status Tobacco use date assessed 01/06/24 01/06/24 08:57 Patient Tobacco Use Status Never used Tobacco 01/06/24 08:57 e-Cigarette/Vaping Use Never Used 01/06/24 08:57 PHQ-9: PHQ-9 Score PHQ-9: Total score 0 01/06/24 09:22 Depression Screening Interpretation: Negative Thrive Assessment: Date of Thrive Assessment Date Thrive assessed 01/06/24 01/06/24 08:57 Currently or been in a relationship where the following occur: No concerns reported Const General: cooperative, comfortable and no acute distress Orientation/consciousness: patient oriented x3 HENMT Head: Yes normocephalic and Yes atraumatic Eyes General: appearance normal, both eyes and all related structures Pupils: Equal, round and reactive pupils present EOM: EOMs intact bilaterally Neck Neck: Yes supple and No lymphadenopathy Thyroid: Thyroid normal Lymphatic: no lymphadenopathy noted Resp Effort & Inspection: normal respiratory effort and able to speak in complete sentences Auscultation: clear to auscultation bilaterally Cardio Heart sounds: S1 normal heart sound present and S2 normal heart sound present GI Palpation (GI): Soft to palpation and nontender Auscultation: normal bowel sounds General: Yes no CVA tenderness Back/Spine/Pelvis Back: no CVA tenderness Skin General skin exam: elasticity normal and turgor normal Neuro General: patient oriented x3 and gait normal Cranial nerves: Yes Equal, round and reactive pupils present Speech: No Abnormal speech present Sensory Exam: No Sensory deficit (Neuro) Coordination: tandem gait normal and Romberg test negative Extrem General: Yes normal exam except as noted and No edema Results AMB Urinalysis, Automated UA Leukoctes 0 Taylor/uL Last Edit by Ben Kay CMA on 01/06/24 09:01 UA Nitrite Negative Last Edit by Ben Kay CMA on 01/06/24 09:01 UA Urobilinogen 0.2 mg/dL Last Edit by Ben Kay CMA on 01/06/24 09 :01 UA Protein 0 mg/dL Last Edit by Ben Kay CMA on 01/06/24 09:01 UA pH 6.0 Last Edit by Ben Kay CMA on 01/06/24 09:01 UA Blood 0 Yaniv/uL Last Edit by Ben Kay CMA on 01/06/24 09:01 UA Specific Touchet 1.010 Last Edit by Ben Kay CMA on 01/06/24 09:01 UA Ketone Negative Last Edit by Ben Kay CMA on 01/06/24 09:01 UA Bilirubin 0 mg/dL Last Edit by Ben Kay CMA on 01/06/24 09:01 UA Glucose 0 mg/dL Last Edit by Ben Kay CMA on 01/06/24 09:01 Results Reviewed Results Reviewed: Laboratory Last Values Urine pH (Auto) 6.0 01/06/24 09:01 Specific Touchet (Auto) 1.010 01/06/24 09:01 Urine Protein (Auto) 0 mg/dL 01/06/24 09:01 Glucose (UA)(Auto) 0 mg/dL 01/06/24 09:01 Urine Ketones (Auto) Negative 01/06/24 09:01 Urine Blood (Auto) 0 Yaniv/uL 01/06/24 09:01 Urine Nitrite (Auto) Negative 01/06/24 09:01 Urine Bilirubin (Auto) 0 mg/dL 01/06/24 09:01 Urine Urobilinogen (Auto) 0.2 mg/dL 01/06/24 09:01 Leukocyte Esterase (Auto) 0 Taylor/uL 01/06/24 09:01 Assessment and Plan Assessment & Plan (1) Annual physical exam: Code(s): Z00.00 - Encounter for general adult medical examination without abnormal findings (2) Diabetes type 2, controlled: Code(s): E11.9 - Type 2 diabetes mellitus without complications Qualifiers: Diabetes mellitus complication status: without complication Diabetes mellitus terminal carman insulin use: without intermediate use Qualified Code(s): E11.9 - Type 2 diabetes mellitus without complications (3) Other specified hypothyroidism: Code(s): E03.8 - Other specified hypothyroidism (4) Hypertension, essential: Code(s): I10 - Essential (primary) hypertension (5) Acid reflux: Code(s): K21.9 - Gastro-esophageal reflux disease without esophagitis Qualifiers: Esophagitis presence: without esophagitis Qualified Code(s): K21.9 - Gastro-esophageal reflux disease without esophagitis (6) LFT elevation: Code(s): R79.89 - Other specified abnormal findings of blood chemistry (7) Morbid obesity due to excess calories: Code(s): E66.01 - Morbid (severe) obesity due to excess calories (8) Traumatic anosmia: Code(s): R43.0 - Anosmia Plan Patient is a 48-year-old gentleman came in today for physical exam Last set of labs done in November 12 reviewed again He is taking all his medication and are tolerating them Allergies are stable since he has started taking Singulair He has appointment with the phosphatic fertilizer supervisor end of this month for elevated ferritin Hemochromatosis test is still pending Patient is still not interested in colonoscopy. Not consistent with Flonase, patient says that he feels he does not need it every day Continue with magnesium supplement Lost sense of smell after the nasal surgery GERD is stable with omeprazole BMI is elevated need to lose weight, patient says that he is aware of that Vital signs are stable Patient says that he feels good Lab order placed to be done in February. Patient has appointment for follow-up in April. Orders: Orders TSH reflex Free T4 2 Months E03.8 - Other specified hypothyroidism, E11.9 - Type 2 diabetes mellitus without complications, E66.01 - Morbid (severe) obesity due to excess calories, I10 - Essential (primary) hypertension, R79.89 - Other specified abnormal findings of blood chemistry, Z00.00 - Encounter for general adult medical examination without abnormal findings Complete Blood Count Auto Diff 2 Months E03.8 - Other specified hypothyroidism, E11.9 - Type 2 diabetes mellitus without complications, E66.01 - Morbid (severe) obesity due to excess calories, I10 - Essential (primary) hypertension, R79.89 - Other specified abnormal findings of blood chemistry, Z00.00 - Encounter for general adult medical examination without abnormal findings Comprehensive Met. Panel 2 Months E03.8 - Other specified hypothyroidism, E11.9 - Type 2 diabetes mellitus without complications, E66.01 - Morbid (severe) obesity due to excess calories, I10 - Essential (primary) hypertension, R79.89 - Other specified abnormal findings of blood chemistry, Z00.00 - Encounter for general adult medical examination without abnormal findings LDL Cholesterol Direct 2 Months E03.8 - Other specified hypothyroidism, E11.9 - Type 2 diabetes mellitus without complications, E66.01 - Morbid (severe) obesity due to excess calories, I10 - Essential (primary) hypertension, R79.89 - Other specified abnormal findings of blood chemistry, Z00.00 - Encounter for general adult medical examination without abnormal findings AMB Urinalysis Automated Today Z13.9 - Encounter for screening, unspecified Hemoglobin A1c 2 Months E03.8 - Other specified hypothyroidism, E11.9 - Type 2 diabetes mellitus without complications, E66.01 - Morbid (severe) obesity due to excess calories, I10 - Essential (primary) hypertension, R79.89 - Other specified abnormal findings of blood chemistry, Z00.00 - Encounter for general adult medical examination without abnormal findings Ferritin 2 Months E03.8 - Other specified hypothyroidism, E11.9 - Type 2 di abetes mellitus without complications, E66.01 - Morbid (severe) obesity due to excess calories, I10 - Essential (primary) hypertension, R79.89 - Other specified abnormal findings of blood chemistry, Z00.00 - Encounter for general adult medical examination without abnormal findings Microalbumin, Random (w Creat) 2 Months E03.8 - Other specified hypothyroidism, E11.9 - Type 2 diabetes mellitus without complications, E66.01 - Morbid (severe) obesity due to excess calories, I10 - Essential (primary) hypertension, R79.89 - Other specified abnormal findings of blood chemistry, Z00.00 - Encounter for general adult medical examination without abnormal findings Coding Level of Care Code Est Pt [facility] Care 40-64y(56176) Diagnoses Annual physical exam Z00.00 Controlled type 2 diabetes mellitus without complication, without long-term current use of insulin E11.9 Diabetes mellitus complication status: without complication Diabetes mellitus intermediate insulin use: without terminal carman use Other specified hypothyroidism E03.8 Hypertension, essential I10 Gastroesophageal reflux disease without esophagitis K21.9 Esophagitis presence: without esophagitis LFT elevation R79.89 Morbid obesity due to excess calories E66.01 Traumatic anosmia R43.0 Additional Codes SOPHIA-7 Assessment Billing - SOPHIA-7 Assessment Tool: SOPHIA-7 Assessment [id number] ([id number])
[2024-01-06 08:52] VITALS: BP 126/78; PULSE 57; O2SAT 97; BMI 42.0
== END 2024-01-06 09:36 | disposition home or self-care (01) ==
PROVIDERS: PCP Internal Medicine; Visit Provider Internal Medicine
DX: Z00.00 Encounter for general adult medical examination without abnormal findings (principal); E11.9 Type 2 diabetes mellitus without complications; E66.01 Morbid (severe) obesity due to excess calories; Z68.41 Body mass index [BMI] 40.0-44.9, adult; E03.8 Other specified hypothyroidism; K21.9 Gastro-esophageal reflux disease without esophagitis; I10 Essential (primary) hypertension; R79.89 Other specified abnormal findings of blood chemistry; R43.0 Anosmia
CPT/HCPCS: 81003; 99396

== ENCOUNTER → 2024-01-13 09:34 | Outpatient (BNV) | payer OTHER, SELFPAY | PROVIDERS: PCP Internal Medicine; Referring Provider Internal Medicine; Visit Provider Internal Medicine | DX: E83.119 Hemochromatosis, unspecified (principal); R79.89 Other specified abnormal findings of blood chemistry | CPT/HCPCS: 99204 ==

== ENCOUNTER 2024-04-30 10:16 | Outpatient (REF) | payer OTHER, SELFPAY ==
[2024-04-30 13:04] LABS: MANUAL DIFF FLAG NO
[2024-04-30 13:13] LABS: Basophils Absolute Auto 0.1 X10*3/uL (0.0-0.2); Basophils Percent Auto 0.7 % (0-2); Eosinophils Absolute Auto 0.2 X10*3/uL (0.0-0.4); Hematocrit 48.7 % (42.0-52.0); Hemoglobin 16.2 g/dl (14.0-18.0); Imm Gran Abs Auto 0.03 X10*3/uL (0.00-0.03); Imm Gran Pct Auto 0.4 % (0.0-0.4); Lymphocytes Absolute Auto 2.1 X10*3/uL (1.2-4.9); Lymphocytes Percent Auto 28.9 % (20-40); Mean Corpuscular HGB Conc 33.3 g/dl (31.0-36.0); Mean Corpuscular Hemoglobin 30.3 pg (27.0-33.0); Mean Platelet Volume 11.2 fL (9.4-12.4); Monocytes Absolute Auto 0.6 X10*3/uL (0.1-1.2); Monocytes Percent Auto 8.4 % (2-11); Neutrophils Absolute Auto 4.4 x10*3/uL (2.0-8.3); Neutrophils Percent Auto 59.6 % (45-73); Platelet Count 206 X10*3/uL (160-400); Red Blood Count 5.35 X10*6/uL (4.60-5.80); Red Cell Distribution Width 13.3 % (11.0-16.0); White Blood Count 7.4 X10*3/uL (4.8-10.8)
[2024-04-30 13:45] LABS: Alanine Aminotransferase 35 U/L (0-40); Albumin Level 4.3 g/dL (3.5-5.0); Alkaline Phosphatase 66 U/L (39-117); Anion Gap 10 (12-20); Aspartate Amino Transferase 27 U/L (5-37); Blood Urea Nitrogen 19 mg/dL (9-16); Calcium 8.9 mg/dL (8.4-10.2); Carbon Dioxide 28 mmol/L (22-29); Chloride 100 mmol/L (96-108); Estimated Glomerular Filt Rate > 60; Glucose Random 149 mg/dL (60-115); Potassium 4.3 mmol/L (3.3-5.1); Sodium 134 mmol/L (135-145); Total Protein 7.2 g/dL (6.5-8.0)
[2024-04-30 13:47] LABS: Ferritin 561 ng/mL (20-250); TSH reflex Free T4 2.33 uIU/mL (0.32-4.0)
[2024-04-30 13:48] LABS: Estimated Average Glucose 126 mg/dL; Hemoglobin A1C 185.8214 umol/L; Total Hemoglobin (HGBA1C) 4400.1216 umol/L
[2024-05-03 22:59] LABS: LDL Cholesterol Direct 159 mg/dL (<100)
== END 2024-04-30 10:17 | disposition home or self-care (01) ==
LOC: HO.HMGCLDS 10:16
PROVIDERS: PCP Internal Medicine; Visit Provider Internal Medicine
DX: Z00.00 Encounter for general adult medical examination without abnormal findings (principal); I10 Essential (primary) hypertension; R79.89 Other specified abnormal findings of blood chemistry; E03.8 Other specified hypothyroidism; E11.9 Type 2 diabetes mellitus without complications; E66.01 Morbid (severe) obesity due to excess calories
CPT/HCPCS: 36415; 80053; 82728; 83036; 83721; 84443; 85025

== ENCOUNTER 2024-05-05 10:45 | Outpatient (REF) | payer OTHER, SELFPAY ==
[2024-05-05 17:22] LABS: Creatinine Urine 255.63 mg/dL; Microalbum/Creatinine Ratio Ur 14.8 ug/mg cr (<30)
== END 2024-05-05 10:46 | disposition home or self-care (01) ==
LOC: HO.HMGCLNP 10:45
PROVIDERS: PCP Internal Medicine; Visit Provider Internal Medicine
DX: Z00.00 Encounter for general adult medical examination without abnormal findings (principal); I10 Essential (primary) hypertension; R79.89 Other specified abnormal findings of blood chemistry; E03.8 Other specified hypothyroidism; E11.9 Type 2 diabetes mellitus without complications; E66.01 Morbid (severe) obesity due to excess calories
CPT/HCPCS: 82043; 82570

== ENCOUNTER 2024-05-05 11:56 | Outpatient (AMB) | payer OTHER, SELFPAY ==
--- NOTE | 2024-05-05 12:05 | A.OFFPC_ITS ---
Vital Signs 05/05/24 12:06 Height 6 ft Weight 321 lb BMI 43.5 BP 130/80 Blood Pressure Location Rt brachial Position Sitting Pulse 50 Pulse Source Pulse Oximeter Pulse Oximetry (%) 96 Oxygen Delivery Method Room Air Intake Visit Reasons: 4 fri f/u Allergies Environmental Allergy (Intermediate, Uncoded 05/05/24 12:07) Watery eyes, runny nose Medication List - Last Reconciled 05/05/24 by Glenna More MD atenolol-chlorthalidone 50-25 mg 1 tab PO DAILY 90 days blood sugar diagnostic (FreeStyle Lite Strips) As directed blood sugar twice daily blood-glucose meter (FreeStyle Lite Meter kit) Test blood sugar twice per day glipizide-metformin 5-500 mg 1 tab PO BID 90 days lancets (FreeStyle Lancets) As directed take blood sugar once daily levothyroxine 25 mcg PO DAILY 90 days lisinopril 10 mg PO DAILY 90 days magnesium gluconate 27 mg PO DAILY 90 days montelukast (Singulair) 10 mg PO DAILY omeprazole 20 mg PO DAILY Tobacco use date assessed: 05/05/24 Dental Screening Dental Screen Date: 05/05/24 Did you have a dental visit in the last 12 months?: Yes Did you have a dental problem in the last 6 months where you did not have access to dental care?: No Was dental information given to patient?: Patient has dentist HPI 4 fri f/ HPI Details The patient is a 48-year-old male presenting with follow-up on chronic conditions. The patient experienced patellar tendinitis in the left knee approximately 8 to 10 weeks ago. The condition was recurrent, having first occurred 10 to 12 years ago, but it lasted about two weeks this time. The patient was unable to walk An MRI was performed due to the prolonged symptoms, by [facility] . The pain has since subsided, and the patient is back on his feet. Medical history indicates treatment for Type 2 Diabetes Mellitus with Glipizide and Metformin, as well as medication for hypertension and hypothyroidism. Recent labs showed a ferritin level of 561, which is high but has been decreasing gradually. The patient is under observation by a crusher supervisor regarding this condition. The patient also mentioned a previous requirement for endomethacin due to a once-a-year gout flare-up. 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 - Activity level: On his feet most of day. - Functional status: Working since knee pain has resolved. - Lifestyle: Engages in travel, noted a correlation between vacations and gout flare-ups. Plan Patellar Tendinitis: Patient advised to continue with protective measures to avoid stress on the knee. No new medications necessary at this time. - Hyperferritinemia: Communicated with h ematology for possible need to monitor; consideration for future phlebotomy if levels do not decrease further. - Hyperlipidemia: Advised potential for lifestyle adjustments to lower LDL levels; further monitoring will be necessary. - Type 2 Diabetes Mellitus: Continue cur rent regimen of Glipizide and Metformin; levels stable. - Gastroesophageal Reflux Disease: Disco ntinued omeprazole as it was not needed anymore as per patient - Gout: Prescription for indomethacin gi valerie for future flare-ups; advised about using ibuprofen in the absence of prescription medication. Instructions for patient Monitor knee pain and avoid activities that could exacerbate symptoms. - Follow up with hematology regarding fe rritin levels. - Implement dietary and lifestyle change s as discussed to address hyperlipidemia. - Continue current diabetes management r egimen. - Discontinue omeprazole if not needed. - Use indomethacin or ibuprofen for gout flare-ups as needed. - Obtain follow-up blood work as planned , including uric acid levels. - Schedule next clinic visit in 4 months . Discussion I discussed with the patient the status and management of his recurrent patellar tendinitis, acknowledging the historical persistence of the condition and the ineffectiveness of the topical cream. I addressed his concerns regarding hyperferritinemia, emphasizing the monitoring process with his crusher supervisor and the potential future intervention of phlebotomy. I advised on lifestyle modifications impacting hyperlipidemia and emphasized the continued management of his diabetes with his current medications. We discussed discontinuing omeprazole as he does not experience significant reflux symptoms. I also prescribed indomethacin for annual gout flare-ups, provided education on using ibuprofen as a substitute, and stressed the importance of uric acid level monitoring in future lab work. Follow-up and uric acid testing were scheduled for the subsequent appointment. 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 Current occupational exposures/hazards: No Gender identity: Male Cognitive needs: No Hearing needs: No Vision needs: No Questionnaire Thrive Questionnaire Date Thrive assessed: 12/30/23 I am a: Patient What is your living situation today?: I have a steady place to live Within the past 12 months, did the food you bought not last and you didn't have the money to get more?: Never true Within the past 12 months, did you worry whether your food would run out before you got money to buy more?: Never true Do you have trouble paying for medicines?: No Do you have trouble getting transportation to medical appointments?: No Do you have trouble paying your heating and electricity bill?: No Do you have trouble taking care of your child, family member or friend?: No Do you have trouble with day-to-day activities such as bathing, preparing meals, shopping, managing finances, etc.?: No Are you currently unemployed and looking for a job?: No Are you interested in more education?: No Please select the resources that you would like help with: None Currently or been in a relationship where the following occur: No concerns reported THRIVE Score: 0 SOPHIA-7 AMB Questionnaire SOPHIA-7 Date SOPHIA - 7 assessed: 01/06/24 Source: Developed by Drs. Herbert Torrez, Kylah Clarke, Ayush Fallon and colleagues, with an educational jesús from [employer]. Review of Systems Const Denies chills and Denies fever(s) ENT Denies epistaxis and Denies nasal discharge Card Denies chest pain Resp Denies chest congestion, Denies cough and Denies hemoptysis GI Denies diarrhea and Denies nausea Skin/Breast Denies rash Neuro Reports no additional complaints Psych Reports no additional complaints Endo Reports no additional complaints Physical exam (Primary Care) Vital Signs: Last Vital Signs Pulse 50 05/05/24 12:06 BP 130/80 05/05/24 12:06 Pulse Ox 96 05/05/24 12:06 Oxygen Delivery Method Room Air 05/05/24 12:06 BMI result Body Mass Index 43.5 Tobacco/Smoking Status: Tobacco use Status Tobacco use date assessed 05/05/24 05/05/24 12:07 Patient Tobacco Use Status Never used Tobacco 05/05/24 12:06 e-Cigarette/Vaping Use Never Used 05/05/24 12:06 Thrive Assessment: Date of Thrive Assessment Date Thrive assessed 12/30/23 05/05/24 12:06 Currently or been in a relationship where the following occur: No concerns reported Const General: cooperative, comfortable and no acute distress Orientation/consciousness: patient oriented x3 HENMT Head: Yes normocephalic Eyes General: appearance normal, both eyes and all related structures Neck Neck: Yes supple Resp Effort & Inspection: normal respiratory effort, no cough and no stridor Cardio Rhythm: regular rhythm Heart sounds: S1 normal heart sound present and S2 normal heart sound present Skin General skin exam: turgor normal Neuro General: patient oriented x3, tone normal and moves all extremities Extrem Right lower extremity: no edema Left lower extremity: no edema Coding Level of Care Code Est Pt Level 5 (03224) Diagnoses Controlled type 2 diabetes mellitus without complication, without long-term current use of insulin E11.9 Diabetes mellitus complication status: without complication Diabetes mellitus intermediate insulin use: without terminal supervisor use Other specified hypothyroidism E03.8 Hypertension, essential I10 Environmental allergies Z91.09 Morbid obesity due to excess calories E66.01 Lipid disorder E78.9 Elevated ferritin R79.89 History of gout Z87.39 Assessment & Plan Assessment & Plan (1) Diabetes type 2, controlled: Code(s): E11.9 - Type 2 diabetes mellitus without complications Category: Medical Qualifiers: Diabetes mellitus complication status: without complication Diabetes mellitus intermediate insulin use: without intermediate use Qualified Code(s): E11.9 - Type 2 diabetes mellitus without complications (2) Other specified hypothyroidism: Code(s): E03.8 - Other specified hypothyroidism Category: Medical (3) Hypertension, essential: Code(s): I10 - Essential (primary) hypertension Category: Medical (4) Environmental allergies: Code(s): Z91.09 - Other allergy status, other than to drugs and biological substances Category: Medical (5) Morbid obesity due to excess calories: Code(s): E66.01 - Morbid (severe) obesity due to excess calories Category: Medical (6) Lipid disorder: Code(s): E78.9 - Disorder of lipoprotein metabolism, unspecified Category: Medical (7) Elevated ferritin: Code(s): R79.89 - Other specified abnormal findings of blood chemistry Category: Medical (8) History of gout: Code(s): Z87.39 - Personal history of other diseases of the musculoskeletal system and connective tissue Category: Medical Plan The patient is a 48-year-old male presenting with follow-up on chronic conditions. The patient experienced patellar tendinitis in the left knee approximately 8 to 10 weeks ago. The condition was recurrent, having first occurred 10 to 12 years ago, but it lasted about two weeks this time. The patient was unable to walk An MRI was performed due to the prolonged symptoms, by [facility] . The pain has since subsided, and the patient is back on his feet. Medical history indicates treatment for Type 2 Diabetes Mellitus with Glipizide and Metformin, as well as medication for hypertension and hypothyroidism. Recent labs showed a ferritin level of 561, which is high but has been decreasing gradually. The patient is under observation by a crusher supervisor regardi ng this condition. The patient also mentioned a previous requirement for endomethacin due to a once-a-year gout flare-up. 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 - Activity level: On his feet most of the day. - Functional status: Working since knee pain has resolved. - Lifestyle: Engages in travel, noted a correlation between vacations and gout flare-ups. Plan Patellar Tendinitis: Patient advised to continue with protective measures to avoid stress on the knee. No new medications necessary at this time. - Hyperferritinemia: Communicated with hematology for possible need to monitor; consideration for future phlebotomy if levels do not decrease further. - Hyperlipidemia: Advised potential for lifestyle adjustments to lower LDL levels; further monitoring will be necessary. - Type 2 Diabetes Mellitus: Continue current regimen of Glipizide and Metformin; levels stable. - Gastroesophageal Reflux Disease: Discontinued omeprazole as it was not needed anymore as per patient - Gout: Prescription for indomethacin given for future flare-ups; advised about using ibuprofen in the absence of prescription medication. Instructions for patient Monitor knee pain and avoid activities that could exacerbate symptoms. - Follow up with hematology regarding ferritin levels. - Implement dietary and lifestyle changes as discussed to address hyperli pidemia. - Continue current diabetes management regimen. - Discontinue omeprazole if not needed. - Use indomethacin or ibuprofen for gout flare-ups as needed. - Obtain follow-up blood work as planned, including uric acid levels. - Schedule next clinic visit in 4 months. Discussion I discussed with the patient the status and management of his recurrent patellar tendinitis, acknowledging the historical persistence of the condition and the ineffectiveness of the topical cream. I addressed his concerns regarding hyperferritinemia, emphasizing the monitoring process with his crusher supervisor and the potential future intervention of phlebotomy. I advised on lifestyle modifications impacting hyperlipidemia and emphasized the continued management of his diabetes with his current medications. We discussed discontinuing omeprazole as he does not experience significant reflux symptoms. I also prescribed indomethacin for annual gout flare-ups, provided education on using ibuprofen as a substitute, and stressed the importance of uric acid level monitoring in future lab work. Follow-up and uric acid testing were scheduled for the subsequent appointment. 45 minutes spent in care of this patient Orders: Orders Magnesium 4 Months E03.8 - Other specified hypothyroidism, E11.9 - Type 2 di abetes mellitus without complications, E66.01 - Morbid (severe) obesity due to excess calories, E78.9 - Disorder of lipoprotein metabolism, unspecified, I10 - Essential (primary) hypertension, R79.89 - Other specified abnormal findings of blood chemistry, Z87.39 - Personal history of other diseases of the musculoskeletal system and connective tissue, Z91.09 - Other allergy status, other than to drugs and biological substances Uric Acid 4 Months E03.8 - Other specified hypothyroidism, E11.9 - Type 2 diabetes mellitus without complications, E66.01 - Morbid (severe) obesity due to excess calories, E78.9 - Disorder of lipoprotein metabolism, unspecified, I10 - Essential (primary) hypertension, R79.89 - Other specified abnormal findings of blood chemistry, Z87.39 - Personal history of other diseases of the musculoskeletal system and connective tissue, Z91.09 - Other allergy status, other than to drugs and biological substances Comprehensive Met. Panel 4 Months E03.8 - Other specified hypothyroidism, E11.9 - Type 2 diabetes mellitus without complications, E66.01 - Morbid (severe) obesity due to excess calories, E78.9 - Disorder of lipoprotein metabolism, unspecified, I10 - Essential (primary) hypertension, R79.89 - Other specified abnormal findings of blood chemistry, Z87.39 - Personal history of other diseases of the musculoskeletal system and connective tissue, Z91.09 - Other allergy status, other than to drugs and biological substances LDL Cholesterol Direct 4 Months E03.8 - Other specified hypothyroidism, E11.9 - Type 2 diabetes mellitus without complications, E66.01 - Morbid (severe) obesity due to excess calories, E78.9 - Disorder of lipoprotein metabolism, unspecified, I10 - Essential (primary) hypertension, R79.89 - Other specified abnormal findings of blood chemistry, Z87.39 - Personal history of other diseases of the musculoskeletal system and connective tissue, Z91.09 - Other allergy status, other than to drugs and biological substances Ferritin 4 Months E03.8 - Other specified hypothyroidism, E11.9 - Type 2 diabetes mellitus without complications, E66.01 - Morbid (severe) obesity due to excess calories, E78.9 - Disorder of lipoprotein metabolism, unspecified, I10 - Essential (primary) hypertension, R79.89 - Other specified abnormal findings of blood chemistry, Z87.39 - Personal history of other diseases of the musculoskeletal system and connective tissue, Z91.09 - Other allergy status, other than to drugs and biological substances Hemoglobin A1c 4 Months E03.8 - Other specified hypothyroidism, E11.9 - Type 2 diabetes mellitus without complications, E66.01 - Morbid (severe) obesity due to excess calories, E78.9 - Disorder of lipoprotein metabolism, unspecified, I10 - Essential (primary) hypertension, R79.89 - Other specified abnormal findings of blood chemistry, Z87.39 - Personal history of other diseases of the musculoskeletal system and connective tissue, Z91.09 - Other allergy status, other than to drugs and biological substances TSH reflex Free T4 4 Months E03.8 - Other specified hypothyroidism, E11.9 - Type 2 diabetes mellitus without complications, E66.01 - Morbid (severe) obesity due to excess calories, E78.9 - Disorder of lipoprotein metabolism, unspecified, I10 - Essential (primary) hypertension, R79.89 - Other specified abnormal findings of blood chemistry, Z87.39 - Personal history of other diseases of the musculoskeletal system and connective tissue, Z91.09 - Other allergy status, other than to drugs and biological substances Complete Blood Count Auto Diff 4 Months E03.8 - Other specified hypothyroidism, E11.9 - Type 2 diabetes mellitus without complications, E66.01 - Morbid (severe) obesity due to excess calories, E78.9 - Disorder of lipoprotein metabolism, unspecified, I10 - Essential (primary) hypertension, R79.89 - Other specified abnormal findings of blood chemistry, Z87.39 - Personal history of other diseases of the musculoskeletal system and connective tissue, Z91.09 - Other allergy status, other than to drugs and biological substances Medications: New indomethacin 50 mg PO BID 30 caps 0RF 15 days Discontinued omeprazole Discontinued Reason: Doctor's Order 20 mg PO DAILY 90 caps 1RF
[2024-05-05 12:06] VITALS: BP 130/80; PULSE 50; O2SAT 96; BMI 43.5
== END 2024-05-05 13:01 | disposition home or self-care (01) ==
PROVIDERS: PCP Internal Medicine; Visit Provider Internal Medicine
DX: E11.9 Type 2 diabetes mellitus without complications (principal); E03.8 Other specified hypothyroidism; E66.01 Morbid (severe) obesity due to excess calories; Z68.41 Body mass index [BMI] 40.0-44.9, adult; I10 Essential (primary) hypertension; Z91.09 Other allergy status, other than to drugs and biological substances; E78.9 Disorder of lipoprotein metabolism, unspecified; Z87.39 Personal history of other diseases of the musculoskeletal system and connective tissue

== ENCOUNTER → 2024-05-05 11:56 | Outpatient (BNVA) | payer OTHER, SELFPAY | PROVIDERS: PCP Internal Medicine; Visit Provider Internal Medicine ==

== ENCOUNTER 2024-10-05 08:46 | Outpatient (REF) | payer OTHER, SELFPAY ==
[2024-10-05 10:06] LABS: MANUAL DIFF FLAG NO
[2024-10-05 10:25] LABS: Basophils Absolute Auto 0.1 X10*3/uL (0.0-0.2); Basophils Percent Auto 0.8 % (0-2); Eosinophils Absolute Auto 0.2 X10*3/uL (0.0-0.4); Eosinophils Percent Auto 1.9 % (0-4); Hematocrit 46.1 % (42.0-52.0); Hemoglobin 15.8 g/dl (14.0-18.0); Imm Gran Abs Auto 0.06 X10*3/uL (0.00-0.03); Imm Gran Pct Auto 0.7 % (0.0-0.4); Lymphocytes Absolute Auto 2.2 X10*3/uL (1.2-4.9); Lymphocytes Percent Auto 26.5 % (20-40); Mean Corpuscular HGB Conc 34.3 g/dl (31.0-36.0); Mean Corpuscular Hemoglobin 30.4 pg (27.0-33.0); Mean Corpuscular Volume 88.8 fL (80.0-98.0); Mean Platelet Volume 11.4 fL (9.4-12.4); Monocytes Absolute Auto 0.8 X10*3/uL (0.1-1.2); Monocytes Percent Auto 9.6 % (2-11); Neutrophils Absolute Auto 5.1 x10*3/uL (2.0-8.3); Neutrophils Percent Auto 60.5 % (45-73); Platelet Count 196 X10*3/uL (160-400); Red Blood Count 5.19 X10*6/uL (4.60-5.80); Red Cell Distribution Width 12.4 % (11.0-16.0); White Blood Count 8.4 X10*3/uL (4.8-10.8)
[2024-10-05 10:31] LABS: Estimated Average Glucose 177 mg/dL; Hemoglobin A1C 249.5069 umol/L; Hemoglobin A1c % 7.8 % (<6.0); Total Hemoglobin (HGBA1C) 4063.5684 umol/L
[2024-10-05 10:42] LABS: Alanine Aminotransferase 59 U/L (0-40); Albumin Level 4.5 g/dL (3.5-5.0); Alkaline Phosphatase 78 U/L (39-117); Anion Gap 12 (12-20); Aspartate Amino Transferase 29 U/L (5-37); Bilirubin Total 0.9 mg/dL (0.0-1.0); Blood Urea Nitrogen 18 mg/dL (9-16); Calcium 9.8 mg/dL (8.4-10.2); Carbon Dioxide 26 mmol/L (22-29); Chloride 102 mmol/L (96-108); Estimated Glomerular Filt Rate > 60; Glucose Random 218 mg/dL (60-115); Magnesium 1.6 mg/dL (1.6-2.6); Potassium 4.2 mmol/L (3.3-5.1); Sodium 136 mmol/L (135-145); Total Protein 7.5 g/dL (6.5-8.0); Uric Acid 7.9 mg/dL (3.4-7.0)
[2024-10-05 11:02] LABS: Ferritin 682 ng/mL (20-250)
[2024-10-06 06:28] LABS: LDL Cholesterol Direct 143 mg/dL (<100)
== END 2024-10-05 08:47 | disposition home or self-care (01) ==
LOC: HO.HMGCLDS 08:46
PROVIDERS: PCP Internal Medicine; Visit Provider Internal Medicine
DX: E11.9 Type 2 diabetes mellitus without complications (principal); E03.8 Other specified hypothyroidism; I10 Essential (primary) hypertension; Z91.09 Other allergy status, other than to drugs and biological substances; E66.01 Morbid (severe) obesity due to excess calories; E78.9 Disorder of lipoprotein metabolism, unspecified; R79.89 Other specified abnormal findings of blood chemistry; Z87.39 Personal history of other diseases of the musculoskeletal system and connective tissue
CPT/HCPCS: 36415; 80053; 82728; 83036; 83721; 83735; 84443; 84550; 85025

== ENCOUNTER 2024-10-08 09:20 | Outpatient (AMB) | payer OTHER, SELFPAY ==
--- NOTE | 2024-10-08 09:22 | A.OFFPC_ITS ---
Vital Signs 10/08/24 09:23 Height 6 ft Weight 330 lb 4 oz BMI 44.8 BP 130/80 Blood Pressure Location Rt brachial Position Sitting Pulse 57 Pulse Source Pulse Oximeter Temp 97.8 F Temp Source Oral Pulse Oximetry (%) 98 Oxygen Delivery Method Room Air Intake Visit Reasons: 5 months Follow up Accompanied by: Significant Other Allergies Environmental Allergy (Intermediate, Uncoded 10/08/24 09:25) Watery eyes, runny nose Medication List - Last Reconciled 10/08/24 by Glenna More MD atenolol-chlorthalidone 50-25 mg 1 tab PO DAILY 90 days blood sugar diagnostic (FreeStyle Lite Strips) As directed blood sugar twice daily blood-glucose meter (FreeStyle Lite Meter kit) Test blood sugar twice per day doxycycline monohydrate 100 mg PO BID glipizide-metformin 5-500 mg 1 tab PO BID 90 days indomethacin 50 mg PO BID 15 days lancets (FreeStyle Lancets) As directed take blood sugar once daily levothyroxine 25 mcg PO DAILY 90 days lisinopril 10 mg PO DAILY 90 days magnesium gluconate 27 mg PO DAILY 90 days montelukast (Singulair) 10 mg PO DAILY Tobacco use date assessed: 10/08/24 Dental Screening Dental Screen Date: 10/08/24 Did you have a dental visit in the last 12 months?: Yes Did you have a dental problem in the last 6 months where you did not have access to dental care?: No Was dental information given to patient?: Patient has dentist HPI 5 months Follow up HPI Details History - The patient is a 49 year old male pres enting with multiple chronic conditions, including Hidradenitis Suppurativa, diabetes, hypertension, obesity, elevated uric acid and gout, elevated ferritin level heterozygous hemochromatosis established with Hematology Hidradenitis suppurativa managed by Dermatology, patient was given three-month supply of doxycycline has follow-up appointment coming up - He is also managing Type 2 Diabetes Me llitus and reports an elevated Hemoglobin A1c of 7.8%, despite efforts in dietary management and weight loss. - The patient has a history of elevated ferritin levels, with a recent value of 682, up from 561. Previous concerns had been addressed by hematology with recommendations to donate blood. - Additionally, he experiences gout, pre viously treated with indomethacin for pain, but notes involvement of uric acid management with suggestions for allopurinol. - The patient reports lifestyle changes, including reduced alcohol intake and healthier dietary choices, with confounding issues related to weight management persisting. Problem List - Hidradenitis Suppurativa (HS) - Type 2 Diabetes Mellitus with elevated Hemoglobin A1c of 7.8% - Elevated serum ferritin and iron level s - Gout - Obesity Diagnostic results - Labs: Hemoglobin A1c 7.8%, Ferritin 68 2 (previously 561) [place] of Care The patient has connections with dermatology and hematology for specialized care. Patient Instructions - Continue taking doxycycline as prescr ibed by Dermatology for Hidradenitis Suppurativa. - Plan to donate blood as advised by hem atology due to elevated iron levels. - Contact hematology to schedule follow- up appointments promptly. - Increase Glipizide dosage as instructe d for blood sugar management. - Consider lifestyle modifications inclu ding exercise and dietary changes to facilitate weight management. - Follow-up with dermatology regarding s kin management as prescribed. - Use all prescribed skin care treatment s, including topical clindamycin and benzoyl peroxide. By Dermatology Review of Systems General: No fever no chills neurological: No headaches no dizziness ear nose throat: No sore throat no hearing difficulty no ear pain cardiovascular: No syncope, no chest pain, no palpitations gastrointestinal: No nausea vomiting or diarrhea endocrine: No polyuria polydipsia no heat intolerance genitourinary: No dysuria skin: No new complaints Physical Exam general: No acute distress HEENT: No acute findings neck: Supple respiratory system: Able to talk in full sentences, no audible wheeze no stridor cardiovascular: S1-S2 gastrointestinal: No pain extremities: No new findings MOTORCYCLE TESTER: Alert awake oriented x3 motor sensory intact skin: Discoloration noted, inflamed area on the side axilla right side, no pus, just blood. 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 1. Little interest or pleasure in doing things: not at all 2. Feeling down, depressed, or hopeless: not at all 3. Trouble falling or staying asleep, or sleeping too much: not at all 4. Feeling tired or having little energy: not at all 5. Poor appetite or overeating: not at all 6. Feeling bad about yourself - or that you are a failure or have let yourself or your family down: not at all 7. Trouble concentrating on things, such as reading the newspaper or watching television: not at all 8. Moving or speaking so slowly that other people could have noticed. Or the opposite - being so fidgety or restless that you have been moving around a lot more than usual: not at all 9. Thoughts that you would be better off or of hurting yourself in some way: not at all Total score: 0 Depression Screening Interpretation: Negative Depression Screening Done: Yes 92075 - PHQ-9 Billing: Yes Source: Developed by Drs. Herbert Torrez, Kylah Clarke, Ayush Fallon and colleagues, with an educational jesús from [employer]. Thrive Questionnaire Date Thrive assessed: 10/08/24 I am a: Patient What is your living situation today?: I have a steady place to live Within the past 12 months, did the food you bought not last and you didn't have the money to get more?: Never true Within the past 12 months, did you worry whether your food would run out before you got money to buy more?: Never true Do you have trouble paying for medicines?: No Do you have trouble getting transportation to medical appointments?: No Do you have trouble paying your heating and electricity bill?: No Do you have trouble taking care of your child, family member or friend?: No Do you have trouble with day-to-day activities such as bathing, preparing meals, shopping, managing finances, etc.?: No Are you currently unemployed and looking for a job?: No Are you interested in more education?: No Please select the resources that you would like help with: None Currently or been in a relationship where the following occur: No concerns reported THRIVE Score: 0 AUDIT C Alcohol Use Questionnaire (AUDIT-C) 1. How often do you have a drink containing alcohol?: Monthly or less 2. How many drinks containing alcohol do you have on a typical day when you are drinking?: 1 or 2 3. How often do you have six or more drinks on one occasion?: Less than monthly Total Score: 2 SOPHIA-7 AMB Questionnaire SOPHIA-7 Date SOPHIA - 7 assessed: 10/08/24 Feeling nervous, anxious, or on edge: 0 = Not at all Not being able to stop or control worryin = Not at all Worrying too much about different things: 0 = Not at all Trouble relaxin = Not at all Being so restless that it is hard to sit still: 0 = Not at all Becoming easily annoyed or irritable: 0 = Not at all Feeling afraid as if something awful might happen: 0 = Not at all Total SOPHIA-7 score (0-4 normal; 5-9 mild; 10-14 moderate; 15-21 severe): 0 Source: Developed by Drs. Herbert Torrez, Kylah Clarke, Ayush Fallon and colleagues, with an educational jesús from [employer]. SOPHIA-7 Assessment Billing SOPHIA-7 Assessment Tool: SOPHIA-7 Assessment 52209 Physical exam (Primary Care) Vital Signs: Last Vital Signs Temp 97.8 F 10/08/24 09:23 Pulse 57 10/08/24 09:23 BP 130/80 10/08/24 09:23 Pulse Ox 98 10/08/24 09:23 Oxygen Delivery Method Room Air 10/08/24 09:23 BMI result Body Mass Index 44.8 Tobacco/Smoking Status: Tobacco use Status Tobacco use date assessed 10/08/24 10/08/24 09:27 Patient Tobacco Use Status Never used Tobacco 10/08/24 09:27 e-Cigarette/Vaping Use Never Used 10/08/24 09:27 PHQ-9: PHQ-9 Score PHQ-9: Total score 0 10/08/24 10:03 Depression Screening Interpretation: Negative Thrive Assessment: Date of Thrive Assessment Date Thrive assessed 10/08/24 10/08/24 09:27 Currently or been in a relationship where the following occur: No concerns reported Coding Level of Care Code Est Pt Level 5 (25683) Diagnoses Uncontrolled type 2 diabetes mellitus with hyperglycemia E11.65 Diabetes mellitus type: type 2 Glycemic state: with hyperglycemia Hypertension, essential I10 Gastroesophageal reflux disease without esophagitis K21.9 Esophagitis presence: without esophagitis Lipid disorder E78.9 Elevated ferritin R79.89 Elevated uric acid in blood E79.0 Morbid obesity due to excess calories E66.01 Additional Codes SOPHIA-7 Assessment Billing - SOPHIA-7 Assessment Tool: SOPHIA-7 Assessment 45238 ([id number]) PHQ-9 - 85655 - PHQ-9 Billing: Yes ([id number]) Time Spent (min) 41 Comment Reviewing chart/[id number] with patient and significant other, coordination of care Assessment & Plan Assessment & Plan (1) Uncontrolled diabetes mellitus: Code(s): E11.65 - Type 2 diabetes mellitus with hyperglycemia Category: Medical Qualifiers: Diabetes mellitus type: type 2 Glycemic state: with hyperglycemia Qualified Code(s): E11.65 - Type 2 diabetes mellitus with hyperglycemia (2) Hypertension, essential: Code(s): I10 - Essential (primary) hypertension Category: Medical (3) Acid reflux: Code(s): K21.9 - Gastro-esophageal reflux disease without esophagitis Category: Medical Qualifiers: Esophagitis presence: without esophagitis Qualified Code(s): K21.9 - Gastro-esophageal reflux disease without esophagitis (4) Lipid disorder: Code(s): E78.9 - Disorder of lipoprotein metabolism, unspecified Category: Medical (5) Elevated ferritin: Code(s): R79.89 - Other specified abnormal findings of blood chemistry Category: Medical (6) Elevated uric acid in blood: Code(s): E79.0 - Hyperuricemia without signs of inflammatory arthritis and tophaceous disease Category: Medical (7) Morbid obesity due to excess calories: Code(s): E66.01 - Morbid (severe) obesity due to excess calories Category: Medical Plan History - The patient is a 49 year old male presenting with multiple chronic conditions, including Hidradenitis Suppurativa, diabetes, hypertension, obesity, elevated uric acid and gout, elevated ferritin level heterozygous hemochromatosis established with Hematology Hidradenitis suppurativa managed by Dermatology, patient was given three-month supply of doxycycline has follow-up appointment coming up - He is also managing Type 2 Diabetes Mellitus and reports an elevated Hemoglobin A1c of 7.8%, despite efforts in dietary management and weight loss. - The patient has a history of elevated ferritin levels, with a recent value of 682, up from 561. Previous concerns had been addressed by hematology with recommendations to donate blood. - Additionally, he experiences gout, previously treated with indomethacin for pain, but notes involvement of uric acid management with suggestions for allopurinol. - The patient reports lifestyle changes, including reduced alcohol intake and healthier dietary choices, with confounding issues related to weight management persisting. Problem List - Hidradenitis Suppurativa (HS) - Type 2 Diabetes Mellitus with elevated Hemoglobin A1c of 7.8% - Elevated serum ferritin and iron levels - Gout - Obesity Diagnostic results - Labs: Hemoglobin A1c 7.8%, Ferritin 682 (previously 561) [place] of Care The patient has connections with dermatology and hematology for specialized care. Patient Instructions - Continue taking doxycycline as prescribed by Dermatology for Hidradenitis Suppurativa. - Plan to donate blood as advised by hematology due to elevated iron levels. - Contact hematology to schedule follow-up appointments promptly. - Increase Glipizide dosage as instructed for blood sugar management. - Consider lifestyle modifications including exercise and dietary changes to facilitate weight management. - Follow-up with dermatology regarding skin management as prescribed. - Use all prescribed skin care treatments, including topical clindamycin and benzoyl peroxide. By Dermatology Orders: Orders Hemoglobin A1c 3 Months E11.65 - Type 2 diabetes mellitus with hyperglycemia, E66.01 - Morbid (severe) obesity due to excess calories, E78.9 - Disorder of lipoprotein metabolism, unspecified, E79.0 - Hyperuricemia without signs of inflammatory arthritis and tophaceous disease, I10 - Essential (primary) hypertension, K21.9 - Gastro-esophageal reflux disease without esophagitis, R79.89 - Other specified abnormal findings of blood chemistry Microalbumin, Random (w Creat) 3 Months E11.65 - Type 2 diabetes mellitus with hyperglycemia, E66.01 - Morbid (severe) obesity due to excess calories, E78.9 - Disorder of lipoprotein metabolism, unspecified, E79.0 - Hyperuricemia without signs of inflammatory arthritis and tophaceous disease, I10 - Essential (primary) hypertension, K21.9 - Gastro-esophageal reflux disease without esophagitis, R79.89 - Other specified abnormal findings of blood chemistry Comprehensive Met. Panel 3 Months E11.65 - Type 2 diabetes mellitus with hyperglycemia, E66.01 - Morbid (severe) obesity due to excess calories, E78.9 - Disorder of lipoprotein metabolism, unspecified, E79.0 - Hyperuricemia without signs of inflammatory arthritis and tophaceous disease, I10 - Essential (primary) hypertension, K21.9 - Gastro-esophageal reflux disease without esophagitis, R79.89 - Other specified abnormal findings of blood chemistry Ferritin 3 Months E11.65 - Type 2 diabetes mellitus with hyperglycemia, E66.01 - Morbid (severe) obesity due to excess calories, E78.9 - Disorder of lipoprotein metabolism, unspecified, E79.0 - Hyperuricemia without signs of inflammatory arthritis and tophaceous disease, I10 - Essential (primary) hypertension, K21.9 - Gastro-esophageal reflux disease without esophagitis, R79.89 - Other specified abnormal findings of blood chemistry Complete Blood Count Auto Diff 3 Months E11.65 - Type 2 diabetes mellitus with hyperglycemia, E66.01 - Morbid (severe) obesity due to excess calories, E78.9 - Disorder of lipoprotein metabolism, unspecified, E79.0 - Hyperuricemia without signs of inflammatory arthritis and tophaceous disease, I10 - Essential (primary) hypertension, K21.9 - Gastro-esophageal reflux disease without esophagitis, R79.89 - Other specified abnormal findings of blood chemistry Uric Acid 3 Months E79.0 - Hyperuricemia without signs of inflammatory arthritis and tophaceous disease Medications: New glipizide-metformin 5-500 mg Two tabs in the morning 1 at night 90 days 145 tabs 0RF allopurinol 100 mg PO DAILY 90 tabs 0RF
[2024-10-08 09:23] VITALS: BP 130/80; PULSE 57; TEMP 36.6; O2SAT 98; BMI 44.8
== END 2024-10-08 09:58 | disposition home or self-care (01) ==
LOC: HO.HMCC 09:21
PROVIDERS: PCP Internal Medicine; Visit Provider Internal Medicine
DX: E11.65 Type 2 diabetes mellitus with hyperglycemia (principal); E66.01 Morbid (severe) obesity due to excess calories; Z68.41 Body mass index [BMI] 40.0-44.9, adult; I10 Essential (primary) hypertension; K21.9 Gastro-esophageal reflux disease without esophagitis; E78.9 Disorder of lipoprotein metabolism, unspecified; R79.89 Other specified abnormal findings of blood chemistry; E79.0 Hyperuricemia without signs of inflammatory arthritis and tophaceous disease

== ENCOUNTER → 2024-10-08 09:20 | Outpatient (BNVA) | payer OTHER, SELFPAY | PROVIDERS: PCP Internal Medicine; Visit Provider Internal Medicine | DX: E11.65 Type 2 diabetes mellitus with hyperglycemia (principal); I10 Essential (primary) hypertension; K21.9 Gastro-esophageal reflux disease without esophagitis; E78.9 Disorder of lipoprotein metabolism, unspecified; R79.89 Other specified abnormal findings of blood chemistry; E79.0 Hyperuricemia without signs of inflammatory arthritis and tophaceous disease; E66.01 Morbid (severe) obesity due to excess calories; Z68.41 Body mass index [BMI] 40.0-44.9, adult; M10.9 Gout, unspecified | CPT/HCPCS: 96127 ==

== ENCOUNTER 2024-10-14 13:36 | Outpatient (REF) | payer OTHER, SELFPAY | END 2024-10-14 13:37 | disposition home or self-care (01) | LOC: HO.BBR 13:36 | PROVIDERS: PCP Internal Medicine; Visit Provider Internal Medicine | DX: E83.110 Hereditary hemochromatosis (principal) | CPT/HCPCS: 85014; 85018; 99195 ==

== ENCOUNTER 2024-12-14 10:11 | Outpatient (REF) | payer OTHER, SELFPAY | END 2024-12-14 10:12 | disposition home or self-care (01) | LOC: HO.BBR 10:11 | PROVIDERS: PCP Internal Medicine; Visit Provider Internal Medicine | DX: E83.111 Hemochromatosis due to repeated red blood cell transfusions (principal) | CPT/HCPCS: 85018; 99195 ==

== ENCOUNTER 2024-12-27 08:09 | Outpatient (AMB) | payer OTHER, SELFPAY ==
--- NOTE | 2024-12-27 08:17 | MHC.OFFVIS ---
Vital Signs 12/27/24 08:24 Height 6 ft Weight 334 lb BMI 45.3 BP 124/67 Blood Pressure Location Lt brachial Position Sitting Pulse 54 Pulse Oximetry (%) 98 Oxygen Delivery Method Room Air Intake Visit Reasons: Colonoscopy Screening Intake Note: Patient new consult for 1st pre Colonoscopy screening. Patient denies any GI issues. Cleaning Technician Required: No Accompanied by: Spouse Allergies Environmental Allergy (Intermediate, Uncoded 10/08/24 09:25) Watery eyes, runny nose HPI HPI Colonoscopy Screening: Details: 49 year old? male with past medical history of gout, hyperlipidemia, GERD, CHARO,hypertension, IBS, diabetes, transaminitis hypothyroidism is here today for pre colonoscopy screening.? Patient was sent to us by his PCP.? This is his first colonoscopy screening.? Patient denies any gastrointestinal symptoms in the past or at present.? Denies any personal or family history of gastrointestinal disease, colon polyps, or CRC.? Denies history of difficulty with sedation or anesthesia in the past.? Patient has a history of sleep apnea. Not using CPAP at this time.? Denies any history of cardiac, renal, pulmonary, or hepatic disease.?? No history of infectious diseases like hepatitis A, B, C, HIV or tuberculosis.? 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 Current occupational exposures/hazards: No Gender identity: Male Cognitive needs: No Hearing needs: No Vision needs: No Review of Systems Const Denies weight gain and Denies weight loss ENT Reports no additional complaints, Denies dysphagia and Denies odynophagia Card Reports no additional complaints Resp Reports no additional complaints GI Denies abdominal pain, Denies belching, Denies melena, Denies bloating, Denies change in bowel habits, Denies dysphagia, Denies excessive flatus, Denies dyspepsia, Denies heartburn, Denies diarrhea, Denies loose stools, Denies nausea, Denies odynophagia and Denies vomiting Reports no additional complaints Musc Reports no additional complaints Neuro Reports no additional complaints Psych Reports no additional complaints Endo Reports no additional complaints Physical Exam Const General: healthy appearing, no acute distress and well developed Nutritional Appearance: well nourished and obese Orientation/consciousness: patient oriented x3 Resp Effort & Inspection: normal respiratory effort, able to speak in complete sentences, no tracheal deviation and symmetric chest movement Auscultation: clear to auscultation bilaterally Cardio Rate: regular rate GI Inspection: Yes normal to inspection, No distended and Yes obesity Palpation (GI): Soft to palpation, not firm, nontender and No hepatosplenomegaly present Auscultation: normal bowel sounds General: Yes no CVA tenderness Back/Spine/Pelvis Back: no CVA tenderness Skin General skin exam: elasticity normal, turgor normal and dry skin Neuro General: patient oriented x3 Psych Appearance: grossly normal Mental Status: mental status grossly normal Assessment & Plan Assessment & Plan (1) Screen for colon cancer: Code(s): Z12.11 - Encounter for screening for malignant neoplasm of colon Plan Patient denies any GI, cardiac or respiratory symptoms.? Denies any issues with anesthesia in the past.? Denies any history of sleep apnea.? No history infectious diseases in the past or present.? Not on any anticoagulation therapy.? No family or personal history of colon cancer or polyps.? Patient denies melena, hematochezia, unintentional weight loss or ribbon like stools.? Discussed at length the pre-procedure,? prep, diet & medications as well as what to expect prior, during and after the procedure.?? Stressed the importance of good bowel prep.? Recommended the use of Vaseline or Calmoseptine OTC & baby wipes with bowel movements to promote comfort.? ?Patient verbalizes understanding and agrees to plan of care.? She was given the opportunity to ask questions and all questions answered.? We will see her after the procedure.? Medications: New bisacodyl (Dulcolax (bisacodyl)) take 4 tabs at noon the day before your colonoscopy 20 mg (4 x 5 mg) PO ONCE 4 tabs 0RF constipation 1 day Z12.11 - Encounter for screening for malignant neoplasm of colon polyethylene glycol 3350 (Miralax) As directed by gastroenterology department at [facility] 238 grams PO ONCE 238 grams 0RF Z12.11 - Encounter for screening for malignant neoplasm of colon Coding Level of Care Code New Pt Level 3 (96799) Diagnoses Screen for colon cancer Z12.11 Time Spent (min) 40 Comment 30 minutes and patient and additional 10 minutes spent reviewing his records
[2024-12-27 08:24] VITALS: BP 124/67; PULSE 54; O2SAT 98; BMI 45.3
== END 2024-12-27 08:38 | disposition home or self-care (01) ==
LOC: HO.HGI 08:09
PROVIDERS: PCP Internal Medicine; Visit Provider Nurse Practitioner Family
DX: Z01.818 Encounter for other preprocedural examination (principal); Z12.11 Encounter for screening for malignant neoplasm of colon
CPT/HCPCS: 99203

== ENCOUNTER 2025-01-17 09:48 | Outpatient (REF) | payer OTHER, SELFPAY ==
[2025-01-17 13:14] LABS: MANUAL DIFF FLAG NO
[2025-01-17 13:21] LABS: Hematocrit 42.5 % (42.0-52.0); Hemoglobin 14.4 g/dl (14.0-18.0); Imm Gran Abs Auto 0.05 X10*3/uL (0.00-0.03); Imm Gran Pct Auto 0.7 % (0.0-0.4); Lymphocytes Absolute Auto 2.0 X10*3/uL (1.2-4.9); Mean Corpuscular HGB Conc 33.9 g/dl (31.0-36.0); Mean Corpuscular Hemoglobin 31.0 pg (27.0-33.0); Mean Corpuscular Volume 91.6 fL (80.0-98.0); NRBC Abs Auto 0.000 X10*3/uL (0.0-0.012); NRBC Pct Auto 0.0 /100WBC (0.0-0.2); Platelet Count 184 X10*3/uL (160-400); Red Blood Count 4.64 X10*6/uL (4.60-5.80); White Blood Count 6.8 X10*3/uL (4.8-10.8)
[2025-01-17 13:36] LABS: Hemoglobin A1C 230.1244 umol/L; Total Hemoglobin (HGBA1C) 3895.3575 umol/L
[2025-01-17 13:47] LABS: Alanine Aminotransferase 41 U/L (0-40); Albumin Level 4.1 g/dL (3.5-5.0); Alkaline Phosphatase 91 U/L (39-117); Anion Gap 10 (12-20); Aspartate Amino Transferase 24 U/L (5-37); Blood Urea Nitrogen 18 mg/dL (9-16); Calcium 9.3 mg/dL (8.4-10.2); Carbon Dioxide 30 mmol/L (22-29); Chloride 104 mmol/L (96-108); Estimated Glomerular Filt Rate > 60; Potassium 4.3 mmol/L (3.3-5.1); Sodium 140 mmol/L (135-145); Total Protein 6.9 g/dL (6.5-8.0)
[2025-01-17 14:06] LABS: Uric Acid 6.2 mg/dL (3.4-7.0)
[2025-01-17 14:14] LABS: Ferritin 284 ng/mL (20-250)
== END 2025-01-17 09:49 | disposition home or self-care (01) ==
LOC: HO.HMGCLDS 09:48
PROVIDERS: PCP Internal Medicine; Visit Provider Internal Medicine
DX: E11.65 Type 2 diabetes mellitus with hyperglycemia (principal); K21.9 Gastro-esophageal reflux disease without esophagitis; E66.01 Morbid (severe) obesity due to excess calories; I10 Essential (primary) hypertension; E79.0 Hyperuricemia without signs of inflammatory arthritis and tophaceous disease; E78.9 Disorder of lipoprotein metabolism, unspecified
CPT/HCPCS: 36415; 80053; 82728; 83036; 84550; 85025

== ENCOUNTER 2025-01-18 04:30 | Outpatient (REF) | payer OTHER, SELFPAY | END 2025-01-18 04:31 | disposition home or self-care (01) | LOC: HO.HMGCLNP 04:30 | PROVIDERS: PCP Internal Medicine; Visit Provider Internal Medicine | DX: E66.01 Morbid (severe) obesity due to excess calories (principal); E11.65 Type 2 diabetes mellitus with hyperglycemia; K21.9 Gastro-esophageal reflux disease without esophagitis; E78.9 Disorder of lipoprotein metabolism, unspecified; E79.0 Hyperuricemia without signs of inflammatory arthritis and tophaceous disease; I10 Essential (primary) hypertension | CPT/HCPCS: 82043; 82570 ==

== ENCOUNTER 2025-01-18 08:33 | Outpatient (AMB) | payer OTHER, SELFPAY ==
[2025-01-18 08:35] VITALS: BP 122/76; PULSE 60; O2SAT 98; BMI 46.5
--- NOTE | 2025-01-18 08:35 | A.OFFPC_ITS ---
Vital Signs 01/18/25 08:35 Height 6 ft Weight 343 lb BMI 46.5 BP 122/76 Blood Pressure Location Lt brachial Position Sitting Pulse 60 Pulse Source Pulse Oximeter Pulse Oximetry (%) 98 Oxygen Delivery Method Room Air Intake Visit Reasons: 3m follow up per [place] Beef Ribber Required: No Allergies Environmental Allergy (Intermediate, Uncoded 01/18/25 08:35) Watery eyes, runny nose Tobacco use date assessed: 10/08/24 Dental Screening Dental Screen Date: 10/08/24 HPI 3m follow up per [place] HPI Details History - The patient is a 49-year-old male pres enting with concerns predominantly related to elevated weight and lab test follow-up. - The patient reports a long-standing is georgina with weight, describing it as the usual problem. 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 The patient acknowledges unhealthy eating habits and occasional consumption of high-calorie foods, including chowder and alcohol. - The patient's hemoglobin A1c was repor walker at 7.6%, slightly reduced from a previous value of 7.8%. Uric acid levels decreased from 7.9 to 6.2, and ferritin levels from 682 to 284. - The patient has a history of gout and reports symptomatic inflammation in joints, ankles, and elbows, which is managed with Indomethacin as needed. - The patient does not engage in routine depression or anxiety-related behaviors, although he consumes alcohol regularly, stating, ?probably drink five days a week. - The patient admits to not regularly ea ting until late in the day, typically after work, contributing to unhealthy eating patterns. - The patient has been active, walking s ubstantial distances daily, estimating upward of 20 miles. 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 - Lifestyle: Reports high levels of phys ical activity by walking up to 20 miles daily due to job responsibilities. - Nutrition: Consumes chowder and high-c alorie food; drinks alcohol approximately five times per week. - Weight: Current BMI of 46.5 noted; rec ent weight increase from 334 lbs to 343 lbs. - Substance Use: Admits regular consumpt ion of alcohol. - Dietary Habits: Typically does not eat until evening, contributing to weight gain. Medications - Allopurinol for gout. - Atenolol, Chlorthalidone, and Lisinopr il 10 mg for hypertension management. - Montelukast for allergy management. - Levothyroxine 25 mcg for thyroid manag ement. - Indomethacin as needed for inflammatio n. - Glipizide and Metformin - dosed as two tablets in the morning and one at night for diabetes management. Problem List - Type 2 Diabetes Mellitus - Essential Hypertension - Gout - Obesity - Allergic Rhinitis - Hypothyroidism Diagnostic results - Labs: - Hemoglobin A1c: 7.6% (previous ly 7.8%) - Uric Acid: 6.2 (previously 7.9) - Ferritin: 284 (previously 682) Patient Instructions - Consider using Claritin or Zyrtec anai g with Montelukast for allergy relief. - Monitor caloric intake and aim for a d aily intake of 3,748 calories to achieve a weight loss of 1 pound per week. - Continue current exercise routine, rem aining active. - Limit alcohol intake to reduce calorie consumption. - Continue current medication regimen as prescribed. - Seek follow-up care in three months fo r physical examination and reassessment. Review of Systems General: No fever no chills neurological: No headaches no dizziness ear nose throat: No sore throat no hearing difficulty no ear pain cardiovascular: No syncope, no chest pain, no palpitations gastrointestinal: No nausea vomiting or diarrhea endocrine: No polyuria polydipsia no heat intolerance genitourinary: No dysuria skin: No new complaints Physical Exam general: No acute distress HEENT: No acute findings neck: Supple respiratory system: Able to talk in full sentences, no audible wheeze no stridor cardiovascular: S1-S2 RRR, blood pressure is excellent, 122/76 gastrointestinal: No pain extremities: No new findings NETWORK SYSTEMS CONSULTANT: Alert awake oriented x3 motor sensory intact skin: Normal turgor [facility] Medical History Diabetes Hypertension Surgical History Hx laparoscopic cholecystectomy Social History Household Members: Significant Other Housing: Apartment Patient Tobacco Use Status: Never used Tobacco e-Cigarette/Vaping Use: Never Used Current occupational status: employed 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 Current occupational exposures/hazards: No Gender identity: Male Cognitive needs: No Hearing needs: No Vision needs: No Questionnaire Thrive Questionnaire Date Thrive assessed: 10/01/24 I am a: Patient What is your living situation today?: I have a steady place to live Within the past 12 months, did the food you bought not last and you didn't have the money to get more?: Never true Within the past 12 months, did you worry whether your food would run out before you got money to buy more?: Never true Do you have trouble paying for medicines?: No Do you have trouble getting transportation to medical appointments?: No Do you have trouble paying your heating and electricity bill?: No Do you have trouble taking care of your child, family member or friend?: No Do you have trouble with day-to-day activities such as bathing, preparing meals, shopping, managing finances, etc.?: No Are you currently unemployed and looking for a job?: No Are you interested in more education?: No Please select the resources that you would like help with: None Currently or been in a relationship where the following occur: No concerns reported THRIVE Score: 0 SOPHIA-7 AMB Questionnaire SOPHIA-7 Date SOPHIA - 7 assessed: 10/08/24 Source: Developed by Drs. Herbert Torrez, Kylah Clarke, Ayush Fallon and colleagues, with an educational jesús from [employer]. Physical exam (Primary Care) Vital Signs: Last Vital Signs Pulse 60 01/18/25 08:35 BP 122/76 01/18/25 08:35 Pulse Ox 98 01/18/25 08:35 Oxygen Delivery Method Room Air 01/18/25 08:35 BMI result Body Mass Index 46.5 Tobacco/Smoking Status: Tobacco use Status Tobacco use date assessed 10/08/24 01/18/25 08:41 Patient Tobacco Use Status Never used Tobacco 01/18/25 08:41 e-Cigarette/Vaping Use Never Used 01/18/25 08:41 Thrive Assessment: Date of Thrive Assessment Date Thrive assessed 10/01/24 01/18/25 08:41 Currently or been in a relationship where the following occur: No concerns reported Coding Level of Care Code Est Pt Level 4 (58021) Diagnoses Type 2 diabetes mellitus with other specified complication, without long-term current use of insulin E11.69 Diabetes mellitus retirement insulin use: without retirement use Diabetes mellitus complication status: with other specified complication Hypertension, essential I10 Gastroesophageal reflux disease without esophagitis K21.9 Esophagitis presence: without esophagitis Lipid disorder E78.9 Elevated ferritin R79.89 Elevated uric acid in blood E79.0 Morbid obesity due to excess calories E66.01 Other specified hypothyroidism E03.8 Assessment & Plan Assessment & Plan (1) Type 2 diabetes mellitus: Code(s): E11.9 - Type 2 diabetes mellitus without complications Category: Medical Qualifiers: 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 insulin use: without retirement use Diabetes mellitus complication status: with other specified complication Qualified Code(s): E11.69 - Type 2 diabetes mellitus with other specified complication (2) Hypertension, essential: Code(s): I10 - Essential (primary) hypertension Category: Medical (3) Acid reflux: Code(s): K21.9 - Gastro-esophageal reflux disease without esophagitis Category: Medical Qualifiers: Esophagitis presence: without esophagitis Qualified Code(s): K21.9 - Gastro-esophageal reflux disease without esophagitis (4) Lipid disorder: Code(s): E78.9 - Disorder of lipoprotein metabolism, unspecified Category: Medical (5) Elevated ferritin: Code(s): R79.89 - Other specified abnormal findings of blood chemistry Category: Medical (6) Elevated uric acid in blood: Code(s): E79.0 - Hyperuricemia without signs of inflammatory arthritis and tophaceous disease Category: Medical (7) Morbid obesity due to excess calories: Code(s): E66.01 - Morbid (severe) obesity due to excess calories Category: Medical (8) Other specified hypothyroidism: Code(s): E03.8 - Other specified hypothyroidism Category: Medical Plan History - The patient is a 49-year-old male presenting with concerns predominantly related to elevated weight and lab test follow-up. - The patient reports a long-standing issue with weight, describing it as the usual problem. 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 The patient acknowledges unhealthy eating habits and occ asional consumption of high-calorie foods, including chowder and alcohol. - The patient's hemoglobin A1c was reported at 7.6%, slightly reduced from a previous value of 7.8%. Uric acid levels decreased from 7.9 to 6.2, and ferritin levels from 682 to 284. - The patient has a history of gout and reports symptomatic inflammation in joints, ankles, and elbows, which is managed with Indomethacin as needed. - The patient does not engage in routine depression or anxiety-related behaviors, although he consumes alcohol regularly, stating, ?probably drink five days a week. - The patient admits to not regularly eating until late in the day, typically after work, contributing to unhealthy eating patterns. - The patient has been active, walking substantial distances daily, estimating upward of 20 miles. 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 - Lifestyle: Reports high levels of physical activity by walking up to 20 miles daily due to job responsibilities. - Nutrition: Consumes chowder and high-calorie food; drinks alcohol approximately five times per week. - Weight: Current BMI of 46.5 noted; recent weight increase from 334 lbs to 343 lbs. - Substance Use: Admits regular consumption of alcohol. - Dietary Habits: Typically does not eat until evening, contributing to weight gain. Medications - Allopurinol for gout. - Atenolol, Chlorthalidone, and Lisinopril 10 mg for hypertension management. - Montelukast for allergy management. - Levothyroxine 25 mcg for thyroid management. - Indomethacin as needed for inflammation. - Glipizide and Metformin - dosed as two tablets in the morning and one at night for diabetes management. Problem List - Type 2 Diabetes Mellitus - Essential Hypertension - Gout - Obesity - Allergic Rhinitis - Hypothyroidism Diagnostic results - Labs: - Hemoglobin A1c: 7.6% (previously 7.8%) - Uric Acid: 6.2 (previously 7.9) - Ferritin: 284 (previously 682) Patient Instructions - Consider using Claritin or Zyrtec along with Montelukast for allergy relief. - Monitor caloric intake and aim for a daily intake of 3,748 calories to achieve a weight loss of 1 pound per week. - Continue current exercise routine, remaining active. - Limit alcohol intake to reduce calorie consumption. - Continue current medication regimen as prescribed. - Seek follow-up care in three months for physical examination and reassessment. Orders: Orders Complete Blood Count Auto Diff 3 Months E03.8 - Other specified hypothyroidism, E11.69 - Type 2 diabetes mellitus with other specified complication, E78.9 - Disorder of lipoprotein metabolism, unspecified, I10 - Essential (primary) hypertension Ferritin 3 Months E03.8 - Other specified hypothyroidism, E11.69 - Type 2 diabetes mellitus with other specified complication, E78.9 - Disorder of lipoprotein metabolism, unspecified, I10 - Essential (primary) hypertension Hemoglobin A1c 3 Months E03.8 - Other specified hypothyroidism, E11.69 - Type 2 diabetes mellitus with other specified complication, E78.9 - Disorder of lipoprotein metabolism, unspecified, I10 - Essential (primary) hypertension Comprehensive Met. Panel 3 Months E03.8 - Other specified hypothyroidism, E11.69 - Type 2 diabetes mellitus with other specified complication, E78.9 - Disorder of lipoprotein metabolism, unspecified, I10 - Essential (primary) hypertension TSH reflex Free T4 3 Months E03.8 - Other specified hypothyroidism, E11.69 - Type 2 diabetes mellitus with other specified complication, E78.9 - Disorder of lipoprotein metabolism, unspecified, I10 - Essential (primary) hypertension Medications: Discontinued glipizide-metformin 5-500 mg Discontinued Reason: Ancillary Entered New Order 1 tab PO BID 90 days 180 tabs 0RF
== END 2025-01-18 09:11 | disposition home or self-care (01) ==
LOC: HO.HMCC 08:34
PROVIDERS: PCP Internal Medicine; Visit Provider Internal Medicine
DX: E11.69 Type 2 diabetes mellitus with other specified complication (principal); E66.01 Morbid (severe) obesity due to excess calories; Z68.42 Body mass index [BMI] 45.0-49.9, adult; R79.89 Other specified abnormal findings of blood chemistry; E78.9 Disorder of lipoprotein metabolism, unspecified; I10 Essential (primary) hypertension; K21.9 Gastro-esophageal reflux disease without esophagitis; E79.0 Hyperuricemia without signs of inflammatory arthritis and tophaceous disease; E03.8 Other specified hypothyroidism

== ENCOUNTER 2025-03-08 10:44 | Outpatient (REF) | payer OTHER, SELFPAY | END 2025-03-08 10:45 | disposition home or self-care (01) | LOC: HO.BBR 10:44 | PROVIDERS: PCP Internal Medicine; Visit Provider Internal Medicine | DX: E83.119 Hemochromatosis, unspecified (principal) | CPT/HCPCS: 85018; 99195 ==

== ENCOUNTER 2025-05-06 08:46 | Outpatient (REF) | payer OTHER, SELFPAY | END 2025-05-06 08:47 | disposition home or self-care (01) | LOC: HO.BBR 08:46 | PROVIDERS: PCP Internal Medicine; Visit Provider Internal Medicine | DX: E83.119 Hemochromatosis, unspecified (principal) | CPT/HCPCS: 85018; 99195 ==

== ENCOUNTER 2025-05-25 11:26 | Outpatient (REF) | payer OTHER, SELFPAY ==
[2025-05-25 14:00] LABS: MANUAL DIFF FLAG NO
[2025-05-25 14:04] LABS: Hematocrit 46.0 % (42.0-52.0); Hemoglobin 15.7 g/dl (14.0-18.0); Imm Gran Abs Auto 0.06 X10*3/uL (0.00-0.03); Imm Gran Pct Auto 0.7 % (0.0-0.4); Lymphocytes Absolute Auto 2.3 X10*3/uL (1.2-4.9); Mean Corpuscular HGB Conc 34.1 g/dl (31.0-36.0); Mean Corpuscular Hemoglobin 30.4 pg (27.0-33.0); Mean Corpuscular Volume 89.0 fL (80.0-98.0); NRBC Abs Auto 0.000 X10*3/uL (0.0-0.012); NRBC Pct Auto 0.0 /100WBC (0.0-0.2); Platelet Count 199 X10*3/uL (160-400); Red Blood Count 5.17 X10*6/uL (4.60-5.80); White Blood Count 8.3 X10*3/uL (4.8-10.8)
[2025-05-25 14:48] LABS: Alanine Aminotransferase 54 U/L (0-40); Albumin Level 4.6 g/dL (3.5-5.0); Alkaline Phosphatase 102 U/L (39-117); Anion Gap 12 (12-20); Aspartate Amino Transferase 38 U/L (5-37); Blood Urea Nitrogen 23 mg/dL (9-16); Calcium 10.2 mg/dL (8.4-10.2); Carbon Dioxide 30 mmol/L (22-29); Chloride 99 mmol/L (96-108); Estimated Glomerular Filt Rate > 60; Potassium 4.4 mmol/L (3.3-5.1); Sodium 137 mmol/L (135-145); Total Protein 7.5 g/dL (6.5-8.0)
[2025-05-25 15:07] LABS: Ferritin 323 ng/mL (20-250)
== END 2025-05-25 11:27 | disposition home or self-care (01) ==
LOC: HO.HMGCLDS 11:26
PROVIDERS: PCP Internal Medicine; Visit Provider Internal Medicine
DX: I10 Essential (primary) hypertension (principal); E78.9 Disorder of lipoprotein metabolism, unspecified; E11.69 Type 2 diabetes mellitus with other specified complication; E03.8 Other specified hypothyroidism
CPT/HCPCS: 36415; 80053; 82728; 83036; 84443; 85025

== ENCOUNTER 2025-05-27 08:18 | Outpatient (AMB) | payer OTHER, SELFPAY ==
[2025-05-27 08:21] VITALS: BP 128/78; PULSE 80; O2SAT 93; BMI 45.6
--- NOTE | 2025-05-27 08:21 | A.OFFPC_ITS ---
Vital Signs 05/27/25 08:21 Height 6 ft Weight 336 lb BMI 45.6 BP 128/78 Blood Pressure Location Lt brachial Position Sitting Pulse 80 Pulse Source Pulse Oximeter Pulse Oximetry (%) 93 Oxygen Delivery Method Room Air Intake Visit Reasons: EP - Annual Allergies Environmental Allergy (Intermediate, Uncoded 05/27/25 08:22) Watery eyes, runny nose Medication List - Last Reconciled 05/27/25 by Glenna More MD allopurinol 100 mg PO DAILY atenolol-chlorthalidone 50-25 mg 1 tab PO DAILY 90 days blood sugar diagnostic (FreeStyle Lite Strips) As directed blood sugar twice daily blood-glucose meter (FreeStyle Lite Meter kit) Test blood sugar twice per day doxycycline monohydrate 100 mg PO BID glipizide-metformin 5-500 mg Two tabs in the morning 1 at night 90 days indomethacin 50 mg PO BID 15 days lancets (FreeStyle Lancets) As directed take blood sugar once daily levothyroxine 25 mcg PO DAILY 90 days lisinopril 10 mg PO DAILY 90 days magnesium gluconate 27 mg PO DAILY 90 days montelukast (Singulair) 10 mg PO DAILY Tobacco use date assessed: 10/08/24 Dental Screening Dental Screen Date: 10/08/24 HPI HPI Comments History of Present Illness Details History of Present Illness The patient is a 50 year old male presenting with physical examination and management of chronic conditions, including a recent increase in his hemoglobin A1c. Type 2 diabetes mellitus: - The patient's hemoglobin A1c has incre ased to 8.2. - His current medication regimen is glip izide-metformin 5-500 mg, taking two tablets in the morning and one at night. Gout: - The patient's gout is reported to be s table. - He is taking allopurinol for preventio n and uses indomethacin as needed for flares. Hypothyroidism: - The patient's thyroid test was within normal limits. - He is prescribed levothyroxine 25 mcg. Hypertension: - The patient's blood pressure is well-c ontrolled. - He is taking lisinopril 10 mg and chlo rthalidone 25 mg for blood pressure management. Allergies: - The patient is taking montelukast for allergies. Hemochromatosis: - The patient's ferritin level is in the 300 range. - He is established with hematology at [facility] for hemochromatosis. Medical History: - Type 2 diabetes mellitus - Gout - Hypothyroidism - Hypertension - Allergic rhinitis - Hemochromatosis Health Maintenance - The patient will undergo a colonoscopy soon. Medications - Glipizide-metformin 5-500 mg: Two tabl ets in the morning and one at night for diabetes. - Indomethacin: Taken rarely for gout. - Levothyroxine 25 mcg: For hypothyroidi sm. - Lisinopril 10 mg: For blood pressure c ontrol. - Allopurinol: For gout prevention. - Chlorthalidone 25 mg: For blood pressu re control. - Montelukast: For allergies. 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 Current occupational exposures/hazards: No Gender identity: Male Cognitive needs: No Hearing needs: No Vision needs: No Questionnaire Thrive Questionnaire Date Thrive assessed: 10/01/24 I am a: Patient What is your living situation today?: I have a steady place to live Within the past 12 months, did the food you bought not last and you didn't have the money to get more?: Never true Within the past 12 months, did you worry whether your food would run out before you got money to buy more?: Never true Do you have trouble paying for medicines?: No Do you have trouble getting transportation to medical appointments?: No Do you have trouble paying your heating and electricity bill?: No Do you have trouble taking care of your child, family member or friend?: No Do you have trouble with day-to-day activities such as bathing, preparing meals, shopping, managing finances, etc.?: No Are you currently unemployed and looking for a job?: No Are you interested in more education?: No Please select the resources that you would like help with: None Currently or been in a relationship where the following occur: No concerns reported THRIVE Score: 0 SOPHIA-7 AMB Questionnaire SOPHIA-7 Date SOPHIA - 7 assessed: 10/08/24 Source: Developed by Drs. Herbert Torrez, Kylah Clarke, Ayush Fallon and colleagues, with an educational jesús from [employer]. Review of Systems Narrative Review of Systems - General: No fever no chills - Neurological: No headaches no dizziness - Ear nose throat: No sore throat no hearing difficulty no ear pain - Cardiovascular: No syncope, no chest pain, no palpitations - Gastrointestinal: No nausea vomiting or diarrhea - Endocrine: No polyuria polydipsia no heat intolerance - Genitourinary: No dysuria - Skin: No new complaints Physical exam (Primary Care) Vital Signs: Last Vital Signs Pulse 80 05/27/25 08:21 BP 128/78 05/27/25 08:21 Pulse Ox 93 05/27/25 08:21 Oxygen Delivery Method Room Air 05/27/25 08:21 BMI result Body Mass Index 45.6 Tobacco/Smoking Status: Tobacco use Status Tobacco use date assessed 10/08/24 05/27/25 08:27 Patient Tobacco Use Status Never used Tobacco 05/27/25 08:27 e-Cigarette/Vaping Use Never Used 05/27/25 08:27 Thrive Assessment: Date of Thrive Assessment Date Thrive assessed 10/01/24 05/27/25 08:27 Currently or been in a relationship where the following occur: No concerns reported Narrative Diagnostic results - Hemoglobin A1c: 8.2. - Thyroid test: Within normal limits. - Ferritin level: In the 300 range. Physical Exam General: Cooperative, healthy appearing, comfortable, no acute distress Orientation: Patient oriented x3 Head: Normal to inspection Ears: Within normal limit visually Nose: Normal external nose present Face and sinus: Normal facial exam Eyes: Appearance normal, extraocular movement intact pupils reactive Neck: Normal visual inspection and supple Respiratory: Normal respiratory effort and able to speak in complete sentences. Clear to auscultation, no stridor Cardiovascular: S1 and S2 RRR GI: Normal to inspection. Soft to palpation and nontender Skin: turgor normal, no acute findings Neuro: Patient oriented x3, motor sensory intact, balance intact, tandem pass Extremities: Normal to inspection . 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 use Diabetes mellitus complication status: with other specified complication Hypertension, essential I10 Lipid disorder E78.9 Elevated ferritin R79.89 Elevated uric acid in blood E79.0 Morbid obesity due to excess calories E66.01 Other specified hypothyroidism E03.8 Assessment & Plan Assessment & Plan (1) Encounter for general adult medical examination with abnormal findings: Code(s): Z00.01 - Encounter for general adult medical examination with abnormal findings Category: Medical (2) Type 2 diabetes mellitus: Code(s): E11.9 - Type 2 diabetes mellitus without complications Category: Medical Qualifiers: 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 use: without skilled nursing use Diabetes mellitus complication status: with other specified complication Qualified Code(s): E11.69 - Type 2 diabetes mellitus with other specified complication (3) Hypertension, essential: Code(s): I10 - Essential (primary) hypertension Category: Medical (4) Lipid disorder: Code(s): E78.9 - Disorder of lipoprotein metabolism, unspecified Category: Medical (5) Elevated ferritin: Code(s): R79.89 - Other specified abnormal findings of blood chemistry Category: Medical (6) Elevated uric acid in blood: Code(s): E79.0 - Hyperuricemia without signs of inflammatory arthritis and tophaceous disease Category: Medical (7) Morbid obesity due to excess calories: Code(s): E66.01 - Morbid (severe) obesity due to excess calories Category: Medical (8) Other specified hypothyroidism: Code(s): E03.8 - Other specified hypothyroidism Category: Medical Plan Patient Instructions - You will increase your dose of glipizide-metformin 5-500 mg to two tablets twice a day. - Continue taking levothyroxine 25 mcg for your thyroid. - Continue taking Bp meds - Continue taking allopurinol for gout prevention. - Continue taking montelukast for allergies. - Please schedule a follow-up visit in 3 months. - We will repeat your hemoglobin A1c test at your next visit. Orders: Orders Hemoglobin A1c 3 Months E03.8 - Other specified hypothyroidism, E11.69 - Type 2 diabetes mellitus with other specified complication, E78.9 - Disorder of lipoprotein metabolism, unspecified, I10 - Essential (primary) hypertension Ferritin 3 Months E03.8 - Other specified hypothyroidism, E11.69 - Type 2 diabetes mellitus with other specified complication, E78.9 - Disorder of lipoprotein metabolism, unspecified, I10 - Essential (primary) hypertension Microalbumin, Random (w Creat) 3 Months E03.8 - Other specified hypothyroidism, E11.69 - Type 2 diabetes mellitus with other specified complication, E78.9 - Disorder of lipoprotein metabolism, unspecified, I10 - Essential (primary) hypertension TSH reflex Free T4 3 Months E03.8 - Other specified hypothyroidism, E11.69 - Type 2 diabetes mellitus with other specified complication, E78.9 - Disorder of lipoprotein metabolism, unspecified, I10 - Essential (primary) hypertension Complete Blood Count Auto Diff 3 Months E03.8 - Other specified hypothyroidism, E11.69 - Type 2 diabetes mellitus with other specified complication, E78.9 - Disorder of lipoprotein metabolism, unspecified, I10 - Essential (primary) hypertension Comprehensive Met. Panel 3 Months E03.8 - Other specified hypothyroidism, E11.69 - Type 2 diabetes mellitus with other specified complication, E78.9 - Disorder of lipoprotein metabolism, unspecified, I10 - Essential (primary) hypertension LDL Cholesterol Direct 3 Months E03.8 - Other specified hypothyroidism, E11.69 - Type 2 diabetes mellitus with other specified complication, E78.9 - Disorder of lipoprotein metabolism, unspecified, I10 - Essential (primary) hypertension Medications: Changed From glipizide-metformin 5-500 mg Two tabs in the morning 1 at night 90 days 270 tabs 0RF To glipizide-metformin 5-500 mg 2 tabs PO BID 360 tabs 0RF 90 days
== END 2025-05-27 08:45 | disposition home or self-care (01) ==
LOC: HO.HMCC 08:19
PROVIDERS: PCP Internal Medicine; Visit Provider Internal Medicine
DX: Z00.01 Encounter for general adult medical examination with abnormal findings (principal); E11.69 Type 2 diabetes mellitus with other specified complication; Z68.42 Body mass index [BMI] 45.0-49.9, adult; E66.01 Morbid (severe) obesity due to excess calories; I10 Essential (primary) hypertension; E78.9 Disorder of lipoprotein metabolism, unspecified; R79.89 Other specified abnormal findings of blood chemistry; E79.0 Hyperuricemia without signs of inflammatory arthritis and tophaceous disease; E03.8 Other specified hypothyroidism